=== PATIENT | female | born 1970 | race Caucasian/White ===

== ENCOUNTER 2017-11-15 23:46 | Emergency (ER) | payer MEDICARE, MEDICAID, SELFPAY ==
[2017-11-15 23:49] VITALS: BP 141/93; PULSE 99; RESP 18; TEMP 37.2; O2SAT 100; BMI 43.2
--- NOTE | 2017-11-16 00:12 | ED.DCSUM_ITS ---
- ER Visit Summary Date of Service: 11/16/17 Chief Complaint: [Vaginal lump] History of Present Illness: The patient is a 47 F [who presents to the emergency department with a vaginal lump. She noticed it today while masturbating. It is not painful. She was messing with it. She do not know what it looked like prior to her messing with it. No fevers or chills no urinary symptoms she states she has not been sexually active in 13 years. She is a very poor historian but does state that she had possible herpes remotely. She is also had a history of folliculitis.] Physical Examination: [] Blood pressure 141/93 other vitals within normal limits Well-nourished female in no acute distress exam reveals 1 shallow based ulcer on the mons pubis at the base of a follicle it is not tender there is no drainage there is no surrounding cellulitis there is no abscess or mass She is slightly anxious with flight of ideas Test Results: [] Emergency Department Course and Treatment: [HSV culture was sent. I think this is likely a folliculitis. She will be given bacitracin ointment. She was told she would be contacted if HSV culture came back positive. She is given precautions for which to return.] Treatment Plan: [] Disposition: [Discharge] Impression: [1. Pubic ulcer secondary to folliculitis] This note was generated with [employer] dictation software. It may contain incorrect words, spelling, and punctuation that were not noted in review of the chart prior to signing ED Disposition - Plan for ED Patient: Chief Complaint: Wound Check Referrals: [facility] Doctor,Out of [Primary Care Provider] -
--- NOTE | 2017-11-16 00:13 | ED.DEP ---
ED Disposition - Plan for ED Patient: Chief Complaint: Wound Check Instructions: ED Folliculitis Prescriptions: Bacitracin Ointment 1 applic TOPICAL TID 7 Days #1 tube Referrals: Binh Chaudhry [Other] - 3-5 Days
[2017-11-16] MEDS: BACITRACIN 15 GM Tube 1 APPLIC TOPICAL (00:28)
[2017-11-16 00:42] VITALS: RESP 16
== END 2017-11-16 00:43 | disposition home or self-care (01) ==
LOC: ED 11-16 00:27
PROVIDERS: Emergency Provider Emergency Medicine
DX: N76.6 Ulceration of vulva (principal); L73.9 Follicular disorder, unspecified; E66.9 Obesity, unspecified
CPT/HCPCS: 87255; 99282

== ENCOUNTER 2018-02-07 22:24 | Emergency (ER) | payer MEDICARE, MEDICAID, SELFPAY ==
[2018-02-07 22:25] VITALS: BP 119/83; PULSE 87; RESP 14; TEMP 36.4; O2SAT 98; BMI 30.2
--- NOTE | 2018-02-07 23:07 | ED.VISSUMM ---
- ER Visit Summary Date of Service: 02/07/18 Chief Complaint: Bilateral eye redness History of Present Illness: The patient is a 47 F presenting for redness in both eyes. Patient states that she noticed this one week ago. She has had no drainage or crusting. She has no itching. No pain or burning. No visual changes. She does not wear contacts. She denies chemical exposure. Denies history of injury. She was possibly exposed to pinkeye. She has a history of schizophrenia. She denies hallucinations. She has no suicidal thoughts or plan. She has an appointment with her psychiatrist tomorrow. Physical Examination: Vitals are stable. Patient is afebrile. Alert no acute distress. HEENT exam mild bilateral conjunctival injection. PERRL, EOMI Neck is supple. Lungs are clear and equal bilaterally. Heart is regular rate and rhythm. Extremities are unremarkable. Skin is warm and dry. Remainder of exam is unremarkable. Emergency Department Course and Treatment: Visual acuity is 20/20 OD, 20/20 OS, 20/20 OU. She is given bacitracin ophthalmic ointment. Advised to follow-up with her primary care physician and her psychiatrist as scheduled. Advised return to ED for worsening complaints. Disposition: Discharge home Impression: Mild conjunctivitis, bilateral This note was generated with [employer] dictation software. It may contain incorrect words, spelling, and punctuation that were not noted in review of the chart prior to signing ED Disposition - Plan for ED Patient: Chief Complaint: Eye Problem Referrals: [facility] Doctor,Out of [Primary Care Provider] -
--- NOTE | 2018-02-07 23:10 | ED.DCSUM_ITS ---
- ER Visit Summary Date of Service: 02/07/18 Chief Complaint: Bilateral eye redness History of Present Illness: The patient is a 47 F presenting for redness in both eyes. Patient states that she noticed this one week ago. She has had no drainage or crusting. She has no itching. No pain or burning. No visual changes. She does not wear contacts. She denies chemical exposure. Denies history of injury. She was possibly exposed to pinkeye. She has a history of schizophrenia. She denies hallucinations. She has no suicidal thoughts or plan. She has an appointment with her psychiatrist tomorrow. Physical Examination: Vitals are stable. Patient is afebrile. Alert no acute distress. HEENT exam mild bilateral conjunctival injection. PERRL, EOMI Neck is supple. Lungs are clear and equal bilaterally. Heart is regular rate and rhythm. Extremities are unremarkable. Skin is warm and dry. Remainder of exam is unremarkable. Emergency Department Course and Treatment: Visual acuity is 20/20 OD, 20/20 OS, 20/20 OU. She is given bacitracin ophthalmic ointment. Advised to follow-up with her primary care physician and her psychiatrist as scheduled. Advised return to ED for worsening complaints. Disposition: Discharge home Impression: Mild conjunctivitis, bilateral This note was generated with [employer] dictation software. It may contain incorrect words, spelling, and punctuation that were not noted in review of the chart prior to signing ED Disposition - Plan for ED Patient: Chief Complaint: Eye Problem Referrals: [facility] Doctor,Out of [Primary Care Provider] -
--- NOTE | 2018-02-07 23:20 | ED.DEP ---
ED Disposition - Plan for ED Patient: Chief Complaint: Eye Problem Instructions: ED Conjunctivitis Bacterial Referrals: [facility],Out of [Primary Care Provider] - Counseling,Center [GROUP OF PHYSICIANS] -
[2018-02-07 23:25] VITALS: PULSE 79; RESP 16; O2SAT 98
== END 2018-02-07 23:26 | disposition home or self-care (01) ==
LOC: ED 23:06
PROVIDERS: Emergency Provider Emergency Medicine
DX: H10.9 Unspecified conjunctivitis (principal); Z86.59 Personal history of other mental and behavioral disorders
CPT/HCPCS: 99283

== ENCOUNTER 2018-04-09 21:30 | Emergency (ER) | payer MEDICARE, SELFPAY ==
[2018-04-09 21:31] VITALS: BP 122/66; PULSE 93; RESP 16; TEMP 36.4; O2SAT 97; BMI 28.3
--- NOTE | 2018-04-09 23:45 | ED.DCSUM_ITS ---
- ER Visit Summary Date of Service: 04/09/18 Chief Complaint: Right eye pain History of Present Illness: The patient is a 47 F who presents with right eye pain that began today. Patient admits to some redness. Patient also admits to some watery drainage. Patient admits to a foreign body sensation but does not remember any event where a foreign body got into her eye. Later, the patient stated that she has been chopping wood recently. Patient denies any visual changes. Patient states she normally wears glasses. Physical Examination: Vital signs are stable. Patient is afebrile. Patient is in no acute distress. Pupils are equal, round, and reactive to light bilaterally. Extraocular muscles are intact. Conjunctiva is slightly injected on the right. There is a foreign body noted in the right central cornea. Anterior chamber is clear. There is no hyphema noted. Funduscopic exam was limited due to patient cooperation. The remaining physical exam is within normal limits. Emergency Department Course and Treatment: Tetracaine and fluorescein dye was applied. The foreign body was seen initially has been removed by the patient. Patient states she rubbed her eyes and felt like something came out. There is no corneal abrasion noted. Patient was given a prescription for Polytrim ophthalmic drops. Patient was instructed to follow-up with her primary care physician in 2-3 days. Patient understood and was agreeable with the plan. All questions were answered. Disposition: Discharge home Impression: Foreign body right eye This note was generated with [employer] dictation software. It may contain incorrect words, spelling, and punctuation that were not noted in review of the chart prior to signing ED Disposition - Plan for ED Patient: Disposition: Home or Assisted Living Chief Complaint: Eye Problem Diagnosis: Corneal foreign body Instructions: ED Foreign Body Cornea Prescriptions: Polymyxin B Sulf/Trimethoprim [Polytrim Eye Drops] 2 drp OP 4X/DAY #5 ml Referrals: [facility] Doctor,Out of [Primary Care Provider] -
[2018-04-10] MEDS: Tetracaine 0.5% Ophthalmic Bottle 1 DRP RIGHT EYE
[2018-04-10] MEDS: Fluorescein 1 MG STRIP 1 STRIP RIGHT EYE
[2018-04-10 00:01] VITALS: PULSE 68; RESP 16; O2SAT 97
== END 2018-04-10 00:01 | disposition home or self-care (01) ==
PROVIDERS: Emergency Provider Emergency Medicine
DX: T15.01XA Foreign body in cornea, right eye, initial encounter (principal); X58.XXXA Exposure to other specified factors, initial encounter; Y93.9 Activity, unspecified; Y92.9 Unspecified place or not applicable; Y99.9 Unspecified external cause status
CPT/HCPCS: 99283

== ENCOUNTER 2018-04-28 00:25 | Emergency (ER) | payer MEDICARE, SELFPAY ==
[2018-04-28 00:26] VITALS: BP 139/115; PULSE 74; RESP 16; TEMP 37; O2SAT 98; BMI 29.0
--- NOTE | 2018-04-28 00:44 | ED.VISSUMM ---
- ER Visit Summary Date of Service: 04/28/18 Chief Complaint: Eye check History of Present Illness: The patient is a 47 F who had conjunctivitis a few weeks ago wants to make sure everything is okay. She has no symptoms other than she has blurred vision after watching TV for extended periods of time. She has no photophobia, no vision changes currently, no redness or pain. Physical Examination: Otherwise unremarkable exam, patient has normal external evaluation of the eyelids, conjunctiva shows no erythema pupils are 3 mm and reactive. No palsy. No vision changes and normal exam. Emergency Department Course and Treatment: [Patient was reassured. We will discharge her in stable condition to follow-up with her eye doctor.] Impression: Eye check This note was generated with [employer] dictation software. It may contain incorrect words, spelling, and punctuation that were not noted in review of the chart prior to signing ED Disposition - Plan for ED Patient: Disposition: Home or Assisted Living Chief Complaint: Eye Problem Referrals: Kwesi Gallegos MD [STAFF PHYSICIAN] - 1-2 Weeks Additional Instructions: To get redness, vision changes or eye pain return to the emergency department
--- NOTE | 2018-04-28 00:47 | ED.DCSUM_ITS ---
- ER Visit Summary Date of Service: 04/28/18 Chief Complaint: Eye check History of Present Illness: The patient is a 47 F who had conjunctivitis a few weeks ago wants to make sure everything is okay. She has no symptoms other than she has blurred vision after watching TV for extended periods of time. She has no photophobia, no vision changes currently, no redness or pain. Physical Examination: Otherwise unremarkable exam, patient has normal external evaluation of the eyelids, conjunctiva shows no erythema pupils are 3 mm and reactive. No palsy. No vision changes and normal exam. Emergency Department Course and Treatment: [Patient was reassured. We will discharge her in stable condition to follow-up with her eye doctor.] Impression: Eye check This note was generated with [employer] dictation software. It may contain incorrect words, spelling, and punctuation that were not noted in review of the chart prior to signing ED Disposition - Plan for ED Patient: Disposition: Home or Assisted Living Chief Complaint: Eye Problem Referrals: Kwesi Gallegos MD [STAFF PHYSICIAN] - 1-2 Weeks Additional Instructions: To get redness, vision changes or eye pain return to the emergency department
--- NOTE | 2018-04-28 00:52 | ED.DEP ---
ED Disposition - Plan for ED Patient: Disposition: Home or Assisted Living Chief Complaint: Eye Problem Referrals: Kwesi Gallegos MD [STAFF PHYSICIAN] - 1-2 Weeks Additional Instructions: If you get redness, vision changes or eye pain return to the emergency department
== END 2018-04-28 01:01 | disposition home or self-care (01) ==
LOC: ED 00:58
PROVIDERS: Emergency Provider Emergency Medicine
DX: H57.10 Ocular pain, unspecified eye (principal); H53.8 Other visual disturbances
CPT/HCPCS: 99282

== ENCOUNTER 2018-06-16 01:45 | Emergency (ER) | payer MEDICARE, SELFPAY ==
[2018-06-16 01:46] VITALS: PULSE 86; RESP 18; TEMP 36.8; O2SAT 97
[2018-06-16 01:48] VITALS: BP 105/68; PULSE 83; RESP 18; TEMP 36.8; O2SAT 98; BMI 29.7
--- NOTE | 2018-06-16 02:04 | ED.VISSUMM ---
- ER Visit Summary Date of Service: 06/16/18 Chief Complaint: [Blurred vision/eye problems] History of Present Illness: The patient is a 47 F [since the emergency department with vague complaints of having problems with her eyes for several years. Patient apparently sees Dr. Gallegos who is her venetian blind assembler. Patient also sees a neurologist who told her she does not have MS. Patient has history of paranoid schizophrenia but apparently stopped taking all her medications because she feels like they were making her dumb and were killing her. Patient denies any eye pain currently. Patient denies any foreign body sensation. She has not had any recent illness. Patient is not suicidal or homicidal.] Physical Examination: [HEENT-PERRLA, EOMI. Cranial nerves II through XII grossly intact. TMs clear. Mucous membranes moist. No adenopathy. Cardiovascular-regular rate and rhythm without murmur or ectopy Lungs-clear to auscultation, chest wall stable without crepitus or subcu emphysema Abdomen-normoactive bowel sounds, soft, nontender, no rebound or rigidity, no peritoneal signs. Extremities-intact ?4, normal range of motion, normal pulses, atraumatic] Test Results: [None indicated] Emergency Department Course and Treatment: [Patient having flight of ideas and states that she just wanted to make sure that she was not dying. Patient does not want to be back on her psych meds and would prefer to use natural remedies.] Treatment Plan: [Patient advised to follow-up with her venetian blind assembler within the next 3-5 days.] Disposition: [Discharged home in stable condition] Impression: [Blurred tyufww-datowih-jptitqed uncertain] This note was generated with [employer] dictation software. It may contain incorrect words, spelling, and punctuation that were not noted in review of the chart prior to signing ED Disposition - Plan for ED Patient: Chief Complaint: Eye Problem Referrals: [facility] Doctor,Out of [Primary Care Provider] -
--- NOTE | 2018-06-16 02:07 | ED.DEP ---
ED Disposition - Plan for ED Patient: Chief Complaint: Eye Problem Instructions: ED Blurred Vision Referrals: [facility] Doctor,Out of [Primary Care Provider] - Kwesi Gallegos MD [STAFF PHYSICIAN] - 3-5 Days
== END 2018-06-16 02:14 | disposition home or self-care (01) ==
PROVIDERS: Emergency Provider Emergency Medicine
DX: H53.8 Other visual disturbances (principal); F20.0 Paranoid schizophrenia; Z72.0 Tobacco use
CPT/HCPCS: 99282

== ENCOUNTER 2018-09-13 23:33 | Emergency (ER) | payer MEDICARE, SELFPAY ==
[2018-09-13 23:33] VITALS: BMI 43.2
--- NOTE | 2018-09-13 23:40 | ED.RN ---
DURING TRIAGE, PT STATES THIS IS WHY I HATE THIS PLACE. YOU ASK TOO MANY QUESTIONS. I'M GOING SOMEWHERE ELSE. PT WALKED INTO THE WAITING ROOM AND GRABBED SEVERAL HANDOUTS. WALKING OUT OF THE DEPARTMENT, PT STATES IT'S UP TO THE FBI IF I GET WITNESS PROTECTION. PT WALKED OUT OF THE DEPARTMENT THROUGH THE MAIN ER DOORS.
== END 2018-09-13 23:40 | disposition left against medical advice (07) ==
LOC: ED 23:46
PROVIDERS: Emergency Provider Emergency Medicine
DX: R06.02 Shortness of breath (principal)

== ENCOUNTER 2018-09-23 11:37 | Emergency (ER) | payer MEDICARE, SELFPAY ==
[2018-09-23 11:38] VITALS: BP 149/76; PULSE 101; RESP 16; TEMP 36.6; O2SAT 95; BMI 29.2
--- NOTE | 2018-09-23 11:51 | EKG12_ITS ---
Test Reason : CHEST DISCOMFORT Blood Pressure : / mmHG Vent. Rate : 094 BPM Atrial Rate : 094 BPM P-R Int : 138 ms QRS Dur : 082 ms QT Int : 360 ms P-R-T Axes : 076 082 065 degrees QTc Int : 450 ms Normal sinus rhythm Normal ECG Confirmed by KAMLESH JORGE, JUVENCOI ([id number]), medical transcription editor PAUL SCHULTZ ([id number]) on 09/27/2018 3:20:47 PM Referred By: DC Confirmed By:JUVENCIO WHITLOCK MD
--- NOTE | 2018-09-23 11:51 | CT_ITS ---
STUDY: CTA CHEST REASON FOR EXAM: Female, 47 years old. Sternal chest pain. RADIATION DOSAGE (If Supplied By Facility): CTDIvol = ( 7.03 ) mGy, DLP = ( 375.40 ) mGycm TECHNIQUE: The examination was performed with the intravenous administration of 100 ml of Isovue 370 contrast material. Post-processing of the angiographic images was performed, with multiplanar reformation and 3D reconstruction. Individualized dose optimization techniques were used for this CT. COMPARISON: Prior comparable comparison studies are not available for review at this time. FINDINGS: Cardiac monitoring leads are present. Normal enhancement of the main pulmonary artery and right and left pulmonary arteries. Normal enhancement of the bilateral peripheral pulmonary arteries. There is no demonstrated pulmonary embolism. Normal thoracic aorta and visualized great vessels. There is no demonstrated aortic dissection. Normal heart and pericardium. Normal mediastinum. Normal hilar regions. Normal visualized trachea and bronchi. The lungs are hyper expanded, with flattening of the hemidiaphragms. There is a subpleural nodule within the left lower lobe measuring approximately 7.6 mm in greatest dimension. There is patchy groundglass attenuation within the dependent aspect of the left lung probably related to dependent atelectasis. Patchy airspace disease is also possible. The right lung appears to be clear. Normal pleura. Normal chest wall structures. Normal osseous structures. There appears to be a left adrenal nodule measuring approximately 2.2 cm in greatest dimension. CT/CTA Chest W/WO Contrast IMPRESSION: 1. No CTA demonstrated pulmonary embolism or arterial dissection. 2. Subpleural nodule left lower lobe. Suggest follow-up as per Fleischner criteria. 3. Left basilar airspace disease and/or atelectasis. Electronically Signed: Haley Torre MD at 13:55 EST , Service support ,
[2018-09-23 11:54] VITALS: BP 125/80; PULSE 90; RESP 18; TEMP 37
--- NOTE | 2018-09-23 11:59 | ED.DCSUM_ITS ---
- ER Visit Summary Date of Service: 09/23/18 Chief Complaint: Chest pain History of Present Illness: The patient is a 47 F with chest pain intermittently over the past 2-3 weeks. The pain is located at her right anterior chest. Associated with a cough and sputum. Occasional sore throat. No fevers. She talked to the nurse practitioner correctional therapy teacher who was worried about a PE. Patient has no history of DVT or PE. No cardiac history. No recent immobilization. No leg swelling. Physical Examination: Afebrile and vital signs unremarkable except for heart rate of 101. Lungs clear. Abdomen soft. Extremities nontender with no edema. Skin appears normal. Test Results: EKG shows sinus rhythm at a rate of 94. Labs and CT pending. Emergency Department Course and Treatment: Patient has chest pain with shortness of breath. She also has infectious symptoms. She is concerned about PE. Will check labs, CTA. White count 22.3. The patient is on prednisone. Glucose 125. Troponin normal. test negative. CTA shows no evidence of PE or dissection. She does have a left lung nodule and was advised to follow-up. She has some left-sided airspace disease. She will continue her home medications and follow-up for that as well. Patient is appropriate for outpatient care. Treatment Plan: Above Disposition: Discharge Impression: 1. Chest pain 2. Left lung nodule This note was generated with [employer] dictation software. It may contain incorrect words, spelling, and punctuation that were not noted in review of the chart prior to signing ED Disposition - Plan for ED Patient: Chief Complaint: Chest Other Referrals: [facility] Doctor,Out of [Primary Care Provider] -
[2018-09-23 12:28] LABS: Anion Gap 6 (5-15); BUN 9 mg/dL (7-18); Calcium,Total 8.9 mg/dL (8.5-10.1); Chloride 106 mmol/L (98-107); EST Glomerular Filtration Rate 72 mL/min (>60); Est Glom Filt Rate - Afr Amer 87 mL/min (>60); Estimated Creatinine Clearance 71.03 ml/min; Glucose 125 mg/dL (74-106); Potassium 4.2 mmol/L (3.5-5.1); Sodium Level 140 mmol/L (136-145)
[2018-09-23 12:31] LABS: Pregnancy, Serum, hCG Quali. NEGATIVE Negative (0-9 Nonpreg)
[2018-09-23 12:33] LABS: Absolute Lymphocyte Count 2.17 X10^3/ul (0.83-4.51); Absolute Neutrophil Count 18.2 X10^3/uL (2.0-7.7); Basophil# 0.07 X10^3/uL; Basophil% 0.3 % (0-1); Eosinophil# 0.23 X10^3/uL; Hematocrit 44.7 % (37-47); Hemoglobin 15.2 g/dl (12.0-15.0); Lymphocyte # 2.17 X10^3/ul (4.0); Lymphocyte % 9.7 % (19-41); Mean Corpuscular Hgb 31.6 pg (27.0-32.0); Mean Corpuscular Volume 92.9 fL (81-99); Mean Platelet Vol. 10.5 fl (6.2-12.0); Monocyte# 1.56 X10^3/uL; Neutrophil # 18.17 X10^3/uL (2.7-7.7); Neutrophil % 81.7 % (47-70); Platelet Count 272 K/mm3 (150-450); RBC Distribution Width CV 12.1 % (11.6-14.6); Red Blood Count 4.81 M/mm3 (4.2-5.4); White Blood Count 22.3 K/mm3 (4.4-11.0)
[2018-09-23 12:34] LABS: Differential Indicated SCAN CRITERIA MET; POSITIVE COUNT NO; POSITIVE DIFFERENTIAL YES; POSITIVE MORPHOLOGY NO
[2018-09-23 13:05] VITALS: BP 124/79; PULSE 84; RESP 21; O2SAT 96
--- NOTE | 2018-09-23 14:09 | ED.DEP ---
ED Disposition - Plan for ED Patient: Chief Complaint: Chest Other Instructions: ED Chest Pain Atypical Unkn Cause Referrals: [facility] Doctor,Out of [Primary Care Provider] -
[2018-09-23 14:26] VITALS: BP 108/68; PULSE 78; RESP 15; O2SAT 96
--- OUTSIDE RECORDS SUMMARY | 2018-12-27 10:56 | XMS RPT_ITS ---
:1970 Author Organization OHIP Care Team Providers Name Role Phone SUDHAKAR ROMAN Attending Unavailable ROSANGELA BRAUN Primary Care Unavailable Cj Garber Attending Unavailable Adia Dawson Attending Unavailable ROSANGELA BRAUN Primary Care Unavailable ROSANGELA BRAUN Primary Care Unavailable Lou Montes Attending Unavailable ROSANGELA BRAUN Primary Care Unavailable Cj Garber Attending Unavailable ROSANGELA BRAUN Primary Care Unavailable Elias Boogie Attending Unavailable ROSANGELA BRAUN Primary Care Unavailable Travis Florence Attending Unavailable ROSANGELA BRAUN Primary Care Unavailable Lilia Ricardo Attending Unavailable PROBLEMS PROBLEMS DATE TYPE CONDITION / CODE ATTENDING STATUS SOURCE 09/14/2018 Active Bronchitis, not Martin ROMAN [facility] specified as SUDHAKAR Other [place] acute or chronic Repository / J40(ICD-10) 09/14/2018 Active Wheezing / ABEL, Active [facility] R06.2(ICD-10) SUDHAKAR Other [place] Repository 05/11/2018 Unknown Z00.8 - Encounter Travis Florence Active [place] for other general Community examination / Hospital Z00.8(ICD-10) Repository 04/28/2018 Unknown H57.11 - Ocular Elias Boogie Active [place] pain, right eye / Community H57.11(ICD-10) Hospital Repository PROCEDURES PROCEDURES No Procedure Records FoundRESULTS RESULTS 12 LEAD ELECTROCARDIOGRAM Observed: 09/27/2018 Status: F Source: [place] 3:21 PM [facility] REPOSITORY [facility] Cardiovascular Services [address] [place] [address] 12 Lead EKG 09/23/18 1159 MR#: [id number] Acct: [id number] Name: LYNSEY BACH Rep #: [id number] : 1970 47 From: Tra Woodruff MD Attending Dr: Status: DEP ER Ordering Dr: Cj Garber MD Date: 09/23/18 Location: ED Sex: F C Admitted: Test Reason : CHEST DISCOMFORT Blood Pressure : / mmHG Vent. Rate : 094 BPM Atrial Rate : 094 BPM P-R Int : 138 ms QRS Dur : 082 ms QT Int : 360 ms P-R-T Axes : 076 082 065 degrees QTc Int : 450 ms Normal sinus rhythm Normal ECG Confirmed by TRA WOODRUFF MD ([id number]), assistant production editor PAUL SCHULTZ ([id number]) on 09/27/2018 3:20:47 PM Referred By: DC Confirmed By:TRA WOODRUFF MD 09/27/18 1520 Date Tra Woodruff MD CC: JEZ NOE; Cj Garber MD; OUT OF TOWN DOCTOR Signed DISCHARGE INSTRUCTION Observed: 09/23/2018 Status: F Source: [place] 4:56 PM [facility] REPOSITORY [facility] Medical Records Department [address] [facility] [address] Discharge Instruction 09/23/18 1409 MR#: [id number] Acct: [id number] Name: LYNSEY BACH Rep #: [id number] : 1970 47 From: Cj Garber MD PCP: OUT OF [facility] DOCTOR Status: DEP ER ED Disposition - Plan for ED Patient: Chief Complaint: Chest Other Instructions: ED Chest Pain Atypical Unkn Cause Referrals: [facility] Doctor,Out of [Primary Care Provider] - What to do if you have Problems For any increased pain, shortness of breath, bleeding, nausea or vomiting, chest pain, or any unexpected problems, contact your Primary Care Provider. Call [facility] ([phone]) or report to the closest Emergency Room. Call 911 if necessary. 09/23/18 1656 <Electronically signed by Cj Garber MD> Date Cj Garber MD Cosigner Signature (If Indicated): Date CC: JEZ NOE; OUT OF [facility] DOCTOR EMERGENCY DEPARTMENT Observed: 09/23/2018 Status: F Source: [place] SUMMARY 4:56 PM [facility] REPOSITORY [facility] Medical Records Department [address] [place] [address] Emergency Department Summary 09/23/18 1158 MR#: [id number] Acct: [id number] Name: LYNSEY BACH Rep #: [id number] : 1970 47 From: Cj Garber MD PCP: OUT OF [facility] DOCTOR Status: DEP ER - ER Visit Summary Date of Service: 09/23/18 Chief Complaint: Chest pain History of Present Illness: The patient is a 47 F with chest pain intermittently over the past 2-3 weeks. The pain is located at her right anterior chest. Associated with a cough and sputum. Occasional sore throat. No fevers. She talked to the nurse practitioner long goods drier who was worried about a PE. Patient has no history of DVT or PE. No cardiac history. No recent immobilization. No leg swelling. Physical Examination: Afebrile and vital signs unremarkable except for heart rate of 101. Lungs clear. Abdomen soft. Extremities nontender with no edema. Skin appears normal. Test Results: EKG shows sinus rhythm at a rate of 94. Labs and CT pending. Emergency Department Course and Treatment: Patient has chest pain with shortness of breath. She also has infectious symptoms. She is concerned about PE. Will check labs, CTA. White count 22.3. The patient is on prednisone. Glucose 125. Troponin normal. test negative. CTA shows no evidence of PE or dissection. She does have a left lung nodule and was advised to follow-up. She has some left-sided airspace disease. She will continue her home medications and follow-up for that as well. Patient is appropriate for outpatient care. Treatment Plan: Above Disposition: Discharge Impression: 1. Chest pain 2. Left lung nodule This note was generated with [employer] dictation software. It may contain incorrect words, spelling, and punctuation that were not noted in review of the chart prior to signing ED Disposition - Plan for ED Patient: Chief Complaint: Chest Other Referrals: [facility] Doctor,Out of [Primary Care Provider] - What to do if you have Problems For any increased pain, shortness of breath, bleeding, nausea or vomiting, chest pain, or any unexpected problems, contact your Primary Care Provider. Call [facility] ([phone]) or report to the closest Emergency Room. Call 911 if necessary. 09/23/18 7826 <Electronically signed by Cj Garber MD> Date Cj Garber MD Cosigner Signature (If Indicated): Date CC: JEZ NOE; OUT OF TOWN DOCTOR BASIC METABOLIC Collected: 09/23/2018 Status: F Source: [place] PROFILE (BMP) 12:00 PM [facility] REPOSITORY TYPE CODE TESTS RESULT OUT OF RANGE REFERENCE UNITS LAB L501.0100 74-106 mg/dL High GLU 125 Result Comment: Fasting Glucose result from 100 to 125 mg/dL suggests IMPAIRED HOMEOSTASIS per A.D.A. criteria. Please note revised GLUCOSE reference range effective 2017. LAB L501.1000 7-18 mg/dL Normal BUN 9 LAB L501.1100 0.55-1.02 mg/dL Normal CREAT,SERUM 0.90 Result Comment: The validity of the calculated GFR AND GFRAA in patients over 70 years has not been determined. Clinical correlation is essential. LAB L501.1110 >60 mL/min Normal EST GFR 72 Result Comment: Non- GFR Calc LAB L501.1115 >60 mL/min Normal EST GFR - AA 87 Result Comment: GFR Calc LAB L501.1255 ml/min Normal Estimated CRCL 71.03 LAB L501.1300 10-20 RATIO Normal BUN/CRE 10.0 LAB L501.2200 8.5-10 mg/dL Normal .1 CA 8.9 LAB L501.5300 136-14 mmol/L Normal 5 NA 140 LAB L501.5600 3.5-5. mmol/L Normal 1 K 4.2 LAB L501.5900 98-107 mmol/L Normal CL 106 LAB L501.6100 21.0-3 mmol/L Normal 2.0 CO2 28.0 LAB L501.6200 5-15 Normal GAP 6 Performed By: #### L500.2500, L501.4010 #### [facility] [address] [facility]. [place], [place], [address] TROPONIN-I Collected: 09/23/2018 Status: F Source: [place] 12:00 PM [facility] REPOSITORY TYPE CODE TESTS RESULT OUT OF RANGE REFERENCE UNITS LAB L501.4010 <0.045 ng/mL Normal < 0.015 TROPONIN-I Result Comment: TROPONIN-I EXPECTED VALUES <0.045 Negative 0.045 - 0.590 Consistent with Cardiac Damage > OR = 0.600 Critical Value Not every elevated troponin is indicative of AL. These values should be used with clinical judgement in examining the patient's clinical picture for diagnosis. To establish a diagnosis of AL versus myocardial injury, there must be a demonstrated rise and/or fall in the troponin values, in addition to ischemic symptoms, EKG changes, new regional wall motion abnormality, and/or angiographical evidence. PLEASE NOTE: REFERENCE RANGES EDITED 18 Performed By: #### L500.2500, L501.4010 #### [facility] [address] [place], [place], [address] ,SERUM,HCG QUALI. Collected: Status: F Source: [place] 09/23/2018 12:00 PM [facility] REPOSITORY TYPE CODE TESTS RESULT OUT OF REFERENCE UNITS RANGE LAB L700.6700 =>Qualitative mIU/mL Normal HCG Qual < 1 triggr LAB L700.7000 0-9 Nonpreg Negative Normal HCGSQUAL NEGATIVE Performed By: #### L700.6800 #### [facility] [address] [facility] [address] [place], [place], [address] CBC W/DIFF, AUTOMATED Collected: 09/23/2018 Status: F Source: [place] 12:00 PM [facility] REPOSITORY TYPE CODE TESTS RESULT OUT OF RANGE REFERENCE UNITS LAB L100.1000 4.4-11.0 K/mm3 High WBC 22.3 LAB L100.1200 4.2-5.4 M/mm3 Normal RBC 4.81 LAB L100.1300 12.0-15.0 g/dl High HGB 15.2 LAB L100.1400 37-47 % Normal HCT 44.7 LAB L100.1500 81-99 fL Normal MCV 92.9 LAB L100.1600 27.0-32.0 pg Normal MCH 31.6 LAB L100.1700 32-36 g/gl Normal MCHC 34.0 LAB L100.1810 11.6-14.6 % Normal RDW CV 12.1 LAB L100.1820 35.1-43.9 fl Normal RDW SD 41.0 LAB L100.1900 150-450 K/mm3 Normal PLT 272 LAB L100.2000 6.2-12.0 fl Normal MPV 10.5 LAB L100.2100 47-70 % High NEUT% 81.7 LAB L100.2200 19-41 % Low LY% 9.7 LAB L100.2300 0-10 % Normal MONO% 7.0 LAB L100.2400 0-5 % Normal EO% 1.0 LAB L100.2500 0-1 % Normal BASO% 0.3 LAB L100.2550 0.0-0.9 % Normal IM GRAN % 0.300 Result Comment: IG% - Immature Granulocytes (promyelocytes, myelocytes and metamyelocytes) > 1% indicates that a LEFT SHIFT is Present. LAB L100.2620 2.0-7.7 X10 3/uL High Absolute Neut 18.2 LAB L100.2720 0.83-4.51 X10 3/ul Normal Absolute Lymph 2.17 Performed By: #### L100.0100 #### [facility] [address] [facility] [place], [address] CTA CHEST W/WO Observed: 09/23/2018 Status: F Source: [place] CONTRAST 11:52 AM [facility] REPOSITORY [facility] Imaging Services [address] [place] [address] CTA Chest W/WO Contrast MR#: [id number] Acct: [id number] Name: LYNSEY BACH Rep #: [id number] : 1970 F 47 From: Haley Schultz MD PCP: OUT OF TOWN DOCTOR Status: REG ER Study: CTA Chest W/WO Contrast Date of Exam: 09/23/18 Exam# [id number] Ordering Dr: Cj Garber MD STUDY: CTA CHEST REASON FOR EXAM: Female, 47 years old. Sternal chest pain. RADIATION DOSAGE (If Supplied By Facility): CTDIvol = ( 7.03 ) mGy, DLP = ( 375.40 ) mGycm TECHNIQUE: The examination was performed with the intravenous administration of 100 ml of Isovue 370 contrast material. Post-processing of the angiographic images was performed, with multiplanar reformation and 3D reconstruction. Individualized dose optimization techniques were used for this CT. COMPARISON: Prior comparable comparison studies are not available for review at this time. FINDINGS: Cardiac monitoring leads are present. Normal enhancement of the main pulmonary artery and right and left pulmonary arteries. Normal enhancement of the bilateral peripheral pulmonary arteries. There is no demonstrated pulmonary embolism. Normal thoracic aorta and visualized great vessels. There is no demonstrated aortic dissection. Normal heart and pericardium. Normal mediastinum. Normal hilar regions. Normal visualized trachea and bronchi. The lungs are hyper expanded, with flattening of the hemidiaphragms. There is a subpleural nodule within the left lower lobe measuring approximately 7.6 mm in greatest dimension. There is patchy groundglass attenuation within the dependent aspect of the left lung probably related to dependent atelectasis. Patchy airspace disease is also possible. The right lung appears to be clear. Normal pleura. Normal chest wall structures. Normal osseous structures. There appears to be a left adrenal nodule measuring approximately 2.2 cm in greatest dimension. CT/CTA Chest W/WO Contrast IMPRESSION: 1. No CTA demonstrated pulmonary embolism or arterial dissection. 2. Subpleural nodule left lower lobe. Suggest follow-up as per Fleischner criteria. 3. Left basilar airspace disease and/or atelectasis. Electronically Signed: Haley Schultz MD at 13:55 EST , Service support , CC: Cj Garber MD; OUT OF TOWN DOCTOR Roll Icer Machine: Signed ED PROV NOTE Observed: 09/14/2018 Status: COMPLETED Source: [place] 3:25 AM CLINIC OTHER CAMPUS REPOSITORY HNO ID: [id number] Author: Sudhakar Roman DO Service: Emergency Medicine Author Type: Physician Type: ED Provider Notes Filed: 09/14/2018 3:29 AM Note Text: ED Provider Note Patient Name: Lynsey Bach SERVICE DATE: 09/14/18 History Patient presents with: Cough Patient is a 47-year-old female presenting for cough. Patient states that she's been having a cough for the past 2 weeks. States that in the morning and seems to be the most productive with some green sputum but has a progressive headache clears. Does state that she gets some chest pain with the coughing. States that she feels congested and that there something inside of her chest. Does state that she intermittently wheezes. Has used an inhaler which would feel better. Denies any shortness of breath. No reported fevers or chills. Does state that she's had some nasal congestion. Denies any nausea or vomiting. States she's had a similar episode in the past and had to be placed on a Z-Hilario. Does state that she smokes a pack a day. History provided by: Patient chief service dispatcher used: No PAST MEDICAL HISTORY Diagnosis Date - Depressive disorder, not elsewhere classified PAST SURGICAL HISTORY Procedure Laterality Date - DELIVERY ONLY - PAST SURGICAL HISTORY OF 1997 excision of benign oral tumor - PAST SURGICAL HISTORY OF 10/2003 repair venous aneurysm saphenous vein left ankle, excision ganglion cyst left foot FAMILY HISTORY Problem Relation Age of Onset - Psychiatry Father suicide - Breast Cancer Paternal Grandmother Social History Social History Main Topics - Smoking status: Current Every Day Smoker Packs/day: 1.00 Years: 17.00 Types: Cigarettes - Smokeless tobacco: Never Used - Alcohol use No Comment: occasional - Drug use: No - Sexual activity: No ALLERGIES Allergen Reactions - Abilify [Aripiprazo* Intolerance Cold and stiff - Prozac [Fluoxetine * Intolerance Makes her mean - Reglan [Metoclopram* Intolerance Think crazy Review of Systems Constitutional: Negative for fever. HENT: Positive for congestion. Negative for sore throat. Respiratory: Positive for cough and wheezing. Negative for shortness of breath. Cardiovascular: Positive for chest pain (With cough). Gastrointestinal: Negative for abdominal pain, nausea and vomiting. Musculoskeletal: Negative for back pain. Neurological: Negative for light-headedness and headaches. All other systems reviewed and are negative. Physical Exam BP 124/90 Pulse 89 Temp (Src) 98 (Oral) Resp 16 Ht 5' 5 (1.65m) Wt 176 lb (79.8kg) SpO2 97% BMI 29.29 kg/(m2). Physical Exam Constitutional: She is oriented to person, place, and time. She appears well-developed. No distress. HENT: Head: Atraumatic. Right Ear: External ear normal. Left Ear: External ear normal. Nose: Nose normal. Mouth/Throat: Oropharynx is clear and moist. No oropharyngeal exudate. Eyes: Pupils are equal, round, and reactive to light. Conjunctivae and EOM are normal. Right eye exhibits no discharge. Left eye exhibits no discharge. Neck: Neck supple. No JVD present. Cardiovascular: Normal rate and regular rhythm. Pulmonary/Chest: Effort normal and breath sounds normal. No stridor. No respiratory distress. She has no wheezes. She exhibits no tenderness. Abdominal: She exhibits no distension. Musculoskeletal: She exhibits no deformity. Neurological: She is alert and oriented to person, place, and time. Skin: Skin is warm. No pallor. Psychiatric: Her behavior is normal. Nursing note and vitals reviewed. Diagnostic Testing ED Labs Ordered and Reviewed - No data to display XR CHEST 2V FRONTAL/LAT Final Result IMPRESSION: No radiographic evidence of acute cardiopulmonary abnormality. Roll Icer Machine: PSCNathalie Transcribe Date/Time: Sep 14 2018 2:30A Dictated by : UNRULY NUNES MD This examination was interpreted and the report reviewed and electronically signed by: UNRULY NUNES MD on Sep 14 2018 2:30AM EST EKG INTERPRETATION: RHYTHM: Normal sinus rhythm at 73 beats per minute AXIS: Normal axis INTERVALS: Normal SD interval QRS COMPLEX: Normal ST SEGMENT: Normal ST-T segments QT INTERVAL: Normal COMPARED WITH PRIOR: None available Interpretation by ED physician. Procedures ED Course / Clinical Impression Clinical Impressions as of Sep 14 325 Bronchitis MDM / Disposition / Plan Chest x-ray showed no signs of a pneumonia, congestive heart failure pneumothorax. EKG showed a normal sinus rhythm. Symptoms seem to be consistent with bronchitis. Since her symptoms have been going on for more than 2 weeks course of antibiotics and steroids written. They complain of some chest discomfort with cough. Pain does not seem to be consistent with any ACS, PE or dissection. Breathing comfortably in the room in no signs of any respiratory distress. Doesn't appear to be septic. At this time can try outpatient treatment. First dose of the azithromycin and prednisone given here Disposition The patient was discharged and given RX. Counseled patient regarding radiology results and suspected diagnosis. As well as the need for follow-up. Discharged home with verbal and written instructions. They were instructed to return as needed for persistent or worsening symptoms or any new concerns. Medication(s) prescribed include Azithromycin, prednisone, Tylenol, albuterol, Tessalon Perles. Condition at disposition is stable. SIGNATURE: DO Sudhakar Guzman DO 09/14/18 0329 ED NOTE Observed: 09/14/2018 Status: COMPLETED Source: [place] 3:25 AM CLINIC OTHER CAMPUS REPOSITORY HNO ID: [id number] Author: Viri (Rn) Nikole, RN Service: (none) Author Type: Registered Nurse Type: ED Notes Filed: 09/14/2018 3:39 AM Note Text: Pt received written and verbal discharge instructions. All questions answered. Pt educated on medications and dosages. Instructed pt to follow up with PCP or follow-up DR. No acute distress noted. Instructed to come back to Emergency Room if symptoms worsen. Pt verbalized understanding. All belongings with patient. Pt ambulated with steady gait out of ED. ED NOTE Observed: 09/14/2018 Status: COMPLETED Source: [place] 3:00 AM [facility] OTHER [place] REPOSITORY HNO ID: [id number] Author: Viri (Rn) Nikole, RN Service: (none) Author Type: Registered Nurse Type: ED Notes Filed: 09/14/2018 3:38 AM Note Text: Pt is resting in room, no complaints at this time. Toilet and comfort measures offered. No distress noted. Call light within reach, safety maintained. EKG (AK,AV,EU,FV,HL,BILL,MM,SP) Observed: Status: F Source: [place] 09/14/2018 2:57 AM [facility] OTHER CAMPUS REPOSITORY NAME : LYNSEY BACH PID : [id number] : 1970 Gender : Female Race : ORD : [id number] Procedure Date : Sep 14 2018 02:57:22 Edit Date : Sep 14 2018 09:54:44 Diagnosis:SINUS RHYTHM Normal ECG 0259 Confirmed by DO ROMAN NICHOLAS ([id number]), assistant production editor MINGO CUMMINS ([id number]) on 09/14/2018 9:54:37 AM Ventricular Rate : 73 BPM Atrial Rate : 72 BPM P-R Interval : 164 ms QRS Duration : 82 ms Q-T Interval : 396 ms QTC Calculation(Bezet) : 436 ms P [place] : 77 degrees R [place] : 81 degrees T [place] : 50 degrees Test Reason : Pre OP Location : 502 : LUED LUED1 Overread By : DO ROMAN NICHOLAS Edited By : MINGO CUMMINS Referred By : , Acquired by : CAT, XR CHEST 2V FRONTAL/LAT Observed: 09/14/2018 Status: F Source: [place] 2:29 AM [facility] OTHER CAMPUS REPOSITORY * * *Final Report* * * DATE OF EXAM: Sep 14 2018 2:29AM LUX 5291 - XR CHEST 2V FRONTAL/LAT / PROCEDURE REASON: Cough, new onset * * * * Physician Interpretation * * * * CHEST RADIOGRAPH: PA and lateral views of the chest Exam Date/Time: 09/14/2018 2:29 AM Indication: Cough, new onset Comparison: No relevant prior study available for comparison. RESULTS: Lines, Tubes, and Devices: None Lungs and Pleura: The lungs are clear. No pleural effusion or pneumothorax. Cardiomediastinal silhouette: The mediastinal and cardiac silhouette are normal in size and contour. Other: The bones of the chest are unremarkable. IMPRESSION: No radiographic evidence of acute cardiopulmonary abnormality. Roll Icer Machine: PSCB Transcribe Date/Time: Sep 14 2018 2:30A Dictated by : UNRULY NUNES MD This examination was interpreted and the report reviewed and electronically signed by: UNRULY NUNES MD on Sep 14 2018 2:30AM EST [id number] ED NOTE Observed: 09/14/2018 Status: COMPLETED Source: [place] 2:13 AM [facility] OTHER [place] REPOSITORY O ID: [id number] Author: Sandhya (Medic) Yaneth Service: (none) Author Type: Diesel Mechanic and Grinder Operator Type: ED Notes Filed: 09/14/2018 2:14 AM Note Text: Pt presented to ED with cc of coughing for weeks. PT stated that she tried her mothers inhaler but no relief. PT states that she feels like something is in her chest. DISCHARGE INSTRUCTION Observed: 06/16/2018 Status: F Source: [place] 2:08 AM [facility] REPOSITORY [facility] Medical Records Department [address] [place] [address] Discharge Instruction 06/16/18 0207 MR#: [id number] Acct: [id number] Name: LYNSEY BACH Rep #: [id number] : 1970 47 From: Lou Montes DO PCP: OUT OF TOWN DOCTOR Status: REG ER ED Disposition - Plan for ED Patient: Chief Complaint: Eye Problem Instructions: ED Blurred Vision Referrals: [facility] Doctor,Out of [Primary Care Provider] - Kwesi Gallegos MD [STAFF PHYSICIAN] - 3-5 Days What to do if you have Problems For any increased pain, shortness of breath, bleeding, nausea or vomiting, chest pain, or any unexpected problems, contact your Primary Care Provider. Call [facility] ([phone]) or report to the closest Emergency Room. Call 911 if necessary. 06/16/18 0208 <Electronically signed by Lou Montes DO> Date Lou Montes DO Cosigner Signature (If Indicated): Date CC: OUT OF TOWN DOCTOR EMERGENCY DEPARTMENT Observed: 06/16/2018 Status: F Source: [place] SUMMARY 2:07 AM [facility] REPOSITORY [facility] Medical Records Department [address] [place] [address] Emergency Department Summary 06/16/18 0204 MR#: [id number] Acct: [id number] Name: LYNSEY BACH Rep #: [id number] : 1970 47 From: Lou Montes DO PCP: OUT OF TOWN DOCTOR Status: REG ER - ER Visit Summary Date of Service: 06/16/18 Chief Complaint: [Blurred vision/eye problems] History of Present Illness: The patient is a 47 F [since the emergency department with vague complaints of having problems with her eyes for several years. Patient apparently sees Dr. Gallegos who is her investment banking associate. Patient also sees a neurologist who told her she does not have MS. Patient has history of paranoid schizophrenia but apparently stopped taking all her medications because she feels like they were making her dumb and were killing her. Patient denies any eye pain currently. Patient denies any foreign body sensation. She has not had any recent illness. Patient is not suicidal or homicidal.] Physical Examination: [HEENT-PERRLA, EOMI. Cranial nerves II through XII grossly intact. TMs clear. Mucous membranes moist. No adenopathy. Cardiovascular-regular rate and rhythm without murmur or ectopy Lungs-clear to auscultation, chest wall stable without crepitus or subcu emphysema Abdomen-normoactive bowel sounds, soft, nontender, no rebound or rigidity, no peritoneal signs. Extremities-intact 4, normal range of motion, normal pulses, atraumatic] Test Results: [None indicated] Emergency Department Course and Treatment: [Patient having flight of ideas and states that she just wanted to make sure that she was not dying. Patient does not want to be back on her psych meds and would prefer to use natural remedies.] Treatment Plan: [Patient advised to follow-up with her investment banking associate within the next 3-5 days.] Disposition: [Discharged home in stable condition] Impression: [Blurred eqirbn-kigkstj-dnrgabje uncertain] This note was generated with [employer] dictation software. It may contain incorrect words, spelling, and punctuation that were not noted in review of the chart prior to signing ED Disposition - Plan for ED Patient: Chief Complaint: Eye Problem Referrals: [facility] Doctor,Out of [Primary Care Provider] - What to do if you have Problems For any increased pain, shortness of breath, bleeding, nausea or vomiting, chest pain, or any unexpected problems, contact your Primary Care Provider. Call [facility] ([phone]) or report to the closest Emergency Room. Call 911 if necessary. 06/16/18 0207 <Electronically signed by Lou Montes DO> Date Lou Montes DO Cosigner Signature (If Indicated): Date CC: OUT OF [facility] DOCTOR DISCHARGE INSTRUCTION Observed: 04/28/2018 Status: F Source: [place] 12:53 AM [facility] REPOSITORY [facility] Medical Records Department [address] [place] [address] Discharge Instruction 04/28/18 0052 MR#: [id number] Acct: [id number] Name: LYNSEY BACH Rep #: [id number] : 1970 47 From: Travis Florence MD PCP: OUT OF TOWN DOCTOR Status: PRE ER ED Disposition - Plan for ED Patient: Disposition: Home or Assisted Living Chief Complaint: Eye Problem Referrals: Kwesi Gallegos MD [STAFF PHYSICIAN] - 1-2 Weeks Additional Instructions: If you get redness, vision changes or eye pain return to the emergency department What to do if you have Problems For any increased pain, shortness of breath, bleeding, nausea or vomiting, chest pain, or any unexpected problems, contact your Primary Care Provider. Call [facility] ([phone]) or report to the closest Emergency Room. Call 911 if necessary. 04/28/18 0053 <Electronically signed by Travis Florence MD> Date Travis Florence MD Cosigner Signature (If Indicated): Date CC: OUT OF TOWN DOCTOR EMERGENCY DEPARTMENT Observed: 04/28/2018 Status: F Source: [place] SUMMARY 12:47 AM [facility] Medical Records Department [address] [place] [address] Emergency Department Summary 04/28/18 0044 MR#: [id number] Acct: [id number] Name: LYNSEY BACH Rep #: [id number] : 1970 47 From: Travis Florence MD PCP: OUT OF TOWN DOCTOR Status: PRE ER - ER Visit Summary Date of Service: 04/28/18 Chief Complaint: Eye check History of Present Illness: The patient is a 47 F who had conjunctivitis a few weeks ago wants to make sure everything is okay. She has no symptoms other than she has blurred vision after watching TV for extended periods of time. She has no photophobia, no vision changes currently, no redness or pain. Physical Examination: Otherwise unremarkable exam, patient has normal external evaluation of the eyelids, conjunctiva shows no erythema pupils are 3 mm and reactive. No palsy. No vision changes and normal exam. Emergency Department Course and Treatment: [Patient was reassured. We will discharge her in stable condition to follow-up with her eye doctor.] Impression: Eye check This note was generated with [employer] dictation software. It may contain incorrect words, spelling, and punctuation that were not noted in review of the chart prior to signing ED Disposition - Plan for ED Patient: Disposition: Home or Assisted Living Chief Complaint: Eye Problem Referrals: Kwesi Gallegos MD [STAFF PHYSICIAN] - 1-2 Weeks Additional Instructions: To get redness, vision changes or eye pain return to the emergency department What to do if you have Problems For any increased pain, shortness of breath, bleeding, nausea or vomiting, chest pain, or any unexpected problems, contact your Primary Care Provider. Call [facility] ([phone]) or report to the closest Emergency Room. Call 911 if necessary. 04/28/18 0047 <Electronically signed by Travis Florence MD> Date Travis Florence MD Cosigner Signature (If Indicated): Date CC: OUT OF TOWN DOCTOR PROGRESS Observed: 04/22/2018 Status: COMPLETED Source: [facility] 2:47 PM [facility] REPOSITORY O ID: [id number] Author: Ankush Olvera) Stephanie Service: (none) Author Type: Physician Research Staff Member Type: Progress Notes Filed: 04/22/2018 2:56 PM Note Text: Subjective HPI Pt presents with wanting an eye check. She has paranoid schizophrenia and patient very paranoid during visit. She has tangential speaking and thinks the FBI is after here. She does however have a concern that she might need some eye drops refilled form a visit to the ED she has over a month ago per patient. She is not having symptoms still but wants to know if she needs her antibiotic eyedrops refilled. She had an abrasion a month ago. Review of Systems All other systems reviewed and are negative. PAST MEDICAL HISTORY Diagnosis Date - Depressive disorder, not elsewhere classified Current Outpatient Prescriptions: ALOE VERA ORAL Take by mouth. Disp: Rfl: DIETARY SUPPLEMENT ORAL Take by mouth. baby in me Disp: Rfl: VITAMIN B COMPLEX (B COMPLEX VITAMINS ORAL) Take by mouth. Disp: Rfl: B INFANTIS/B ANI/B JOSE/B BIFID (PROBIOTIC 4X ORAL) Take by mouth. Disp: Rfl: APPLE CIDER VINEGAR ORAL Take by mouth. Disp: Rfl: albuterol HFA (VENTOLIN HFA) 90 mcg/actuation inhaler Inhale 2 Puffs as instructed every 4 hours as needed for Wheezing/Shortness of Breath. (Patient not taking: Reported on 04/22/2018 ) Disp: 1 Inhaler Rfl: 0 Ipeqxdrmzrvswbc-Cvhdvhomp-NG (BROMFED DM) 2-30-10 mg/5 mL syrup Take 5 mL by mouth four times daily as needed. (Patient not taking: Reported on 04/22/2018 ) Disp: 120 mL Rfl: 0 MAGNESIUM ORAL Take by mouth. Disp: Rfl: QUETIAPINE FUMARATE (SEROQUEL XR ORAL) Take by mouth. Disp: Rfl: CALCIUM CARBONATE/VITAMIN D3 (VITAMIN D-3 ORAL) Take by mouth. Disp: Rfl: valACYclovir (VALTREX) 500 mg tablet Take 500 mg by mouth twice daily. Disp: Rfl: risperiDONE (RISPERDAL) 2 mg tablet Take 2 mg by mouth twice daily. Disp: Rfl: CITALOPRAM HYDROBROMIDE (CITALOPRAM ORAL) Take 1 tablet by mouth once daily. Disp: Rfl: MULTIVITAMIN TAB Take one(1) tablet daily. Disp: Rfl: 0 No current facility-administered medications for this visit. PAST SURGICAL HISTORY Procedure Laterality Date - DELIVERY ONLY - PAST SURGICAL HISTORY OF 1997 excision of benign oral tumor - PAST SURGICAL HISTORY OF 10/2003 repair venous aneurysm saphenous vein left ankle, excision ganglion cyst left foot FAMILY HISTORY Problem Relation Age of Onset - Psychiatry Father suicide - Breast Cancer Paternal Grandmother Social History Substance Use Topics - Smoking status: Current Every Day Smoker Packs/day: 1.00 Years: 17.00 Types: Cigarettes - Smokeless tobacco: Never Used - Alcohol use Yes Comment: occasional BP 126/74 Pulse 76 Temp 36.8 ?C (98.2 ?F) (Tympanic) Wt 79.8 kg (176 lb) SpO2 98% Objective Physical Exam Constitutional: She is oriented to person, place, and time and well-developed, well-nourished, and in no distress. HENT: Head: Normocephalic and atraumatic. Right Ear: Tympanic membrane, external ear and ear canal normal. Left Ear: Tympanic membrane, external ear and ear canal normal. Nose: Nose normal. Mouth/Throat: Uvula is midline, oropharynx is clear and moist and mucous membranes are normal. Eyes: Conjunctivae, EOM and lids are normal. Pupils are equal, round, and reactive to light. Lids are everted and swept, no foreign bodies found. Right eye exhibits no discharge, no exudate and no hordeolum. No foreign body present in the right eye. Left eye exhibits no discharge, no exudate and no hordeolum. Cardiovascular: Normal rate, regular rhythm and normal heart sounds. Pulmonary/Chest: Effort normal and breath sounds normal. Neurological: She is alert and oriented to person, place, and time. Skin: Skin is warm and dry. Psychiatric: Her mood appears anxious. She is agitated. She exhibits disordered thought content. Pt tangentially speaking about paranoid thoughts Nursing note and vitals reviewed. ASSESSMENT/PLAN: 1. Eye irritation - ICD9: 379.99, ICD10: H57.8 Pt not having symptoms here, I did not feel she needed a refil on antibiotic drops. I did refer her back to her counselor for the paranoia. CHRISTY Avila Observed: 04/22/2018 Status: COMPLETED Source: [place] 1:00 PM [facility] REPOSITORY Office Visit ([facility]) LYNSEY BACH ([id number]) 1970 F Date Time Provider Department 04/22/18 1:00 PM ANKUSH SUMNER (CHANG) [facility] During your visit today, we recorded the following information about you: Temperature Pulse Blood pressure Weight 98.2 degrees 76/minute 126/74 79.8 kg Ankush Sumner PA-C 04/22/2018 2:56 PM Signed Subjective HPI Pt presents with wanting an eye check. She has paranoid schizophrenia and patient very paranoid during visit. She has tangential speaking and thinks the FBI is after here. She does however have a concern that she might need some eye drops refilled form a visit to the ED she has over a month ago per patient. She is not having symptoms still but wants to know if she needs her antibiotic eyedrops refilled. She had an abrasion a month ago. Review of Systems All other systems reviewed and are negative. PAST MEDICAL HISTORY Diagnosis Date - Depressive disorder, not elsewhere classified Current Outpatient Prescriptions: ALOE VERA ORAL Take by mouth. Disp: Rfl: DIETARY SUPPLEMENT ORAL Take by mouth. baby in me Disp: Rfl: VITAMIN B COMPLEX (B COMPLEX VITAMINS ORAL) Take by mouth. Disp: Rfl: B INFANTIS/B ANI/B JOSE/B BIFID (PROBIOTIC 4X ORAL) Take by mouth. Disp: Rfl: APPLE CIDER VINEGAR ORAL Take by mouth. Disp: Rfl: albuterol HFA (VENTOLIN HFA) 90 mcg/actuation inhaler Inhale 2 Puffs as instructed every 4 hours as needed for Wheezing/Shortness of Breath. (Patient not taking: Reported on 04/22/2018 ) Disp: 1 Inhaler Rfl: 0 Owewjopdqpbxush-Rmlzlwssi-RD (BROMFED DM) 2-30-10 mg/5 mL syrup Take 5 mL by mouth four times daily as needed. (Patient not taking: Reported on 04/22/2018 ) Disp: 120 mL Rfl: 0 MAGNESIUM ORAL Take by mouth. Disp: Rfl: QUETIAPINE FUMARATE (SEROQUEL XR ORAL) Take by mouth. Disp: Rfl: CALCIUM CARBONATE/VITAMIN D3 (VITAMIN D-3 ORAL) Take by mouth. Disp: Rfl: valACYclovir (VALTREX) 500 mg tablet Take 500 mg by mouth twice daily. Disp: Rfl: risperiDONE (RISPERDAL) 2 mg tablet Take 2 mg by mouth twice daily. Disp: Rfl: CITALOPRAM HYDROBROMIDE (CITALOPRAM ORAL) Take 1 tablet by mouth once daily. Disp: Rfl: MULTIVITAMIN TAB Take one(1) tablet daily. Disp: Rfl: 0 No current facility-administered medications for this visit. PAST SURGICAL HISTORY Procedure Laterality Date - DELIVERY ONLY - PAST SURGICAL HISTORY OF 1997 excision of benign oral tumor - PAST SURGICAL HISTORY OF 10/2003 repair venous aneurysm saphenous vein left ankle, excision ganglion cyst left foot FAMILY HISTORY Problem Relation Age of Onset - Psychiatry Father suicide - Breast Cancer Paternal Grandmother Social History Substance Use Topics - Smoking status: Current Every Day Smoker Packs/day: 1.00 Years: 17.00 Types: Cigarettes - Smokeless tobacco: Never Used - Alcohol use Yes Comment: occasional BP 126/74 Pulse 76 Temp 36.8 ?C (98.2 ?F) (Tympanic) Wt 79.8 kg (176 lb) SpO2 98% Objective Physical Exam Constitutional: She is oriented to person, place, and time and well-developed, well-nourished, and in no distress. HENT: Head: Normocephalic and atraumatic. Right Ear: Tympanic membrane, external ear and ear canal normal. Left Ear: Tympanic membrane, external ear and ear canal normal. Nose: Nose normal. Mouth/Throat: Uvula is midline, oropharynx is clear and moist and mucous membranes are normal. Eyes: Conjunctivae, EOM and lids are normal. Pupils are equal, round, and reactive to light. Lids are everted and swept, no foreign bodies found. Right eye exhibits no discharge, no exudate and no hordeolum. No foreign body present in the right eye. Left eye exhibits no discharge, no exudate and no hordeolum. Cardiovascular: Normal rate, regular rhythm and normal heart sounds. Pulmonary/Chest: Effort normal and breath sounds normal. Neurological: She is alert and oriented to person, place, and time. Skin: Skin is warm and dry. Psychiatric: Her mood appears anxious. She is agitated. She exhibits disordered thought content. Pt tangentially speaking about paranoid thoughts Nursing note and vitals reviewed. ASSESSMENT/PLAN: 1. Eye irritation - ICD9: 379.99, ICD10: H57.8 Pt not having symptoms here, I did not feel she needed a refil on antibiotic drops. I did refer her back to her counselor for the paranoia. Ankush Sumner PA-C Referring Provider: SELF [[id number]] Allergies As of Date: 04/22/2018 Noted Allergy Reaction WILMERLIFPam (ARIPIPRAZOLE) 09/26/2015 5 - Intolerance Comments: Cold and stiff PROZAC (FLUOXETINE HCL) 09/26/2015 5 - Intolerance Comments: Makes her mean REGLAN (METOCLOPRAMIDE HCL) 03/31/2007 5 - Intolerance Comments: Think crazy Date Reviewed: 04/22/2018 Reviewed by: Clarissa Britt Ma - Fully Assessed Reason for Visit: Eye Problem [43] Cmt: would like to speak to provider regarding eye problem Primary Visit Diagnosis:Eye irritation [H57.8] Prescriptions as of 04/22/2018 Sig: ALOE VERA ORAL Take by mouth. DIETARY SUPPLEMENT ORAL Take by mouth. baby in me B COMPLEX VITAMINS ORAL Take by mouth. PROBIOTIC 4X ORAL Take by mouth. APPLE CIDER VINEGAR ORAL Take by mouth. ALBUTEROL SULFATE HFA 90 MCG/* Inhale 2 Puffs as instructed * Patient not taking: Reported on 04/22/2018 BROMPHENIRAMINE-PSEUDOEPHEDRI* Take 5 mL by mouth four times* Patient not taking: Reported on 04/22/2018 MAGNESIUM ORAL Take by mouth. SEROQUEL XR ORAL Take by mouth. VITAMIN D-3 ORAL Take by mouth. VALACYCLOVIR 500 MG TABLET Take 500 mg by mouth twice da* RISPERIDONE 2 MG TABLET Take 2 mg by mouth twice sana* CITALOPRAM ORAL Take 1 tablet by mouth once d* MULTIVITAMIN TABLET Take one(1) tablet daily. Problem List As Of Date 04/22/2018 Noted Resolved DEPRESSIVE DISORDER NEC [F32.9] INVALID FOR* NEUROMA SURGICAL (NONNEOPLASTIC) [G58.9] INVALID FOR* Encounter Status:Closed by ANKUSH SUMNER PA-C on 04/22/18 EMERGENCY DEPARTMENT Observed: 04/10/2018 Status: F Source: [place] SUMMARY 12:51 AM [facility] REPOSITORY [facility] Medical Records Department [address] [place] [address] Emergency Department Summary 04/09/18 2332 MR#: [id number] Acct: [id number] Name: LYNSEY BACH Rep #: [id number] : 1970 47 From: Elias Boogie DO PCP: OUT OF TOWN DOCTOR Status: DEP ER - ER Visit Summary Date of Service: 04/09/18 Chief Complaint: Right eye pain History of Present Illness: The patient is a 47 F who presents with right eye pain that began today. Patient admits to some redness. Patient also admits to some watery drainage. Patient admits to a foreign body sensation but does not remember any event where a foreign body got into her eye. Later, the patient stated that she has been chopping wood recently. Patient denies any visual changes. Patient states she normally wears glasses. Physical Examination: Vital signs are stable. Patient is afebrile. Patient is in no acute distress. Pupils are equal, round, and reactive to light bilaterally. Extraocular muscles are intact. Conjunctiva is slightly injected on the right. There is a foreign body noted in the right central cornea. Anterior chamber is clear. There is no hyphema noted. Funduscopic exam was limited due to patient cooperation. The remaining physical exam is within normal limits. Emergency Department Course and Treatment: Tetracaine and fluorescein dye was applied. The foreign body was seen initially has been removed by the patient. Patient states she rubbed her eyes and felt like something came out. There is no corneal abrasion noted. Patient was given a prescription for Polytrim ophthalmic drops. Patient was instructed to follow-up with her primary care physician in 2-3 days. Patient understood and was agreeable with the plan. All questions were answered. Disposition: Discharge home Impression: Foreign body right eye This note was generated with [employer] dictation software. It may contain incorrect words, spelling, and punctuation that were not noted in review of the chart prior to signing ED Disposition - Plan for ED Patient: Disposition: Home or Assisted Living Chief Complaint: Eye Problem Diagnosis: Corneal foreign body Instructions: ED Foreign Body Cornea Prescriptions: Polymyxin B Sulf/Trimethoprim [Polytrim Eye Drops] 2 drp OP 4X/DAY #5 ml Referrals: [facility] Doctor,Out of [Primary Care Provider] - What to do if you have Problems For any increased pain, shortness of breath, bleeding, nausea or vomiting, chest pain, or any unexpected problems, contact your Primary Care Provider. Call [facility] ([phone]) or report to the closest Emergency Room. Call 911 if necessary. 04/10/18 0051 <Electronically signed by Elias Boogie DO> Date Elias Boogie DO Cosigner Signature (If Indicated): Date CC: OUT OF TOWN DOCTOR DISCHARGE INSTRUCTION Observed: 02/07/2018 Status: F Source: [place] 11:21 PM [facility] REPOSITORY [facility] Medical Records Department [address] [place] [address] Discharge Instruction 02/07/182319 MR#: [id number] Acct: [id number] Name: LYNSEY BACH Rep #: [id number] : 1970 47 From: Lilia Ricardo MD PCP: OUT OF [facility] DOCTOR Status: REG ER ED Disposition - Plan for ED Patient: Chief Complaint: Eye Problem Instructions: ED Conjunctivitis Bacterial Referrals: [facility] Doctor,Out of [Primary Care Provider] - Counseling,Center [GROUP OF PHYSICIANS] - What to do if you have Problems For any increased pain, shortness of breath, bleeding, nausea or vomiting, chest pain, or any unexpected problems, contact your Primary Care Provider. Call [facility] ([phone]) or report to the closest Emergency Room. Call 911 if necessary. 02/07/182320 <Electronically signed by Lilia Ricardo MD> Date Lilia Sethiigner Signature (If Indicated): Date CC: OUT OF TOWN DOCTOR EMERGENCY DEPARTMENT Observed: 02/07/2018 Status: F Source: [place] SUMMARY 11:20 PM [facility] Medical Records Department [address] [place] [address] Emergency Department Summary 02/07/18 2307 MR#: [id number] Acct: [id number] Name: LYNSEY BACH Rep #: [id number] : 1970 47 From: Lilia Ricardo MD PCP: OUT OF [facility] DOCTOR Status: REG ER - ER Visit Summary Date of Service: 02/07/18 Chief Complaint: Bilateral eye redness History of Present Illness: The patient is a 47 F presenting for redness in both eyes. Patient states that she noticed this one week ago. She has had no drainage or crusting. She has no itching. No pain or burning. No visual changes. She does not wear contacts. She denies chemical exposure. Denies history of injury. She was possibly exposed to pinkeye. She has a history of schizophrenia. She denies hallucinations. She has no suicidal thoughts or plan. She has an appointment with her psychiatrist tomorrow. Physical Examination: Vitals are stable. Patient is afebrile. Alert no acute distress. HEENT exam mild bilateral conjunctival injection. PERRL, EOMI Neck is supple. Lungs are clear and equal bilaterally. Heart is regular rate and rhythm. Extremities are unremarkable. Skin is warm and dry. Remainder of exam is unremarkable. Emergency Department Course and Treatment: Visual acuity is 20/20 OD, 20/20 OS, 20/20 OU. She is given bacitracin ophthalmic ointment. Advised to follow- up with her primary care physician and her psychiatrist as scheduled. Advised return to ED for worsening complaints. Disposition: Discharge home Impression: Mild conjunctivitis, bilateral This note was generated with [employer] dictation software. It may contain incorrect words, spelling, and punctuation that were not noted in review of the chart prior to signing ED Disposition - Plan for ED Patient: Chief Complaint: Eye Problem Referrals: [facility] Doctor,Out of [Primary Care Provider] - What to do if you have Problems For any increased pain, shortness of breath, bleeding, nausea or vomiting, chest pain, or any unexpected problems, contact your Primary Care Provider. Call [facility] ([phone]) or report to the closest Emergency Room. Call 911 if necessary. 02/07/18 8210 <Electronically signed by Lilia Ricardo MD> Date Lilia Ricardo MD Cosigner Signature (If Indicated): Date CC: OUT OF TOWN DOCTOR PROGRESS Observed: 11/25/2017 Status: COMPLETED Source: [place] 1:17 PM [facility] REPOSITORY HNO ID: [id number] Author: Samir Mendiola) Ethan Service: (none) Author Type: Nurse Practitioner Type: Progress Notes Filed: 11/25/2017 2:05 PM Note Text: Subjective HPI Patient is a 47 year old female here today for an unknown history of head congestion and nasal drainage. States she was treated for tooth infection and was taking Amoxicillin 500mg TID in stead of BID. States she read the label incorrectly. Stated her tooth is feeling better. Nothing makes it better or worse. No other concerns at this time. Review of Systems Constitutional: Negative for chills, fever and malaise/fatigue. HENT: Positive for congestion. Negative for ear pain and sore throat. Respiratory: Negative for cough, sputum production, shortness of breath and wheezing. Cardiovascular: Negative. Gastrointestinal: Negative for nausea and vomiting. Musculoskeletal: Negative for myalgias. Neurological: Positive for headaches (sinus pressure). Endo/Heme/Allergies: Negative for environmental allergies. All other systems reviewed and are negative. PAST MEDICAL HISTORY Diagnosis Date - Depressive disorder, not elsewhere classified PAST SURGICAL HISTORY Procedure Laterality Date - DELIVERY ONLY - PAST SURGICAL HISTORY OF 1997 excision of benign oral tumor - PAST SURGICAL HISTORY OF 10/2003 repair venous aneurysm saphenous vein left ankle, excision ganglion cyst left foot ALLERGIES Abilify [Aripiprazole]; Prozac [Fluoxetine Hcl]; Reglan [Metoclopramide Hcl] MEDICATIONS DIETARY SUPPLEMENT ORAL Take by mouth. baby in co VITAMIN B COMPLEX (B COMPLEX VITAMINS ORAL) Take by mouth. ALOE VERA ORAL Take by mouth. Amoxicillin 500 mg tablet Take 1 tablet by mouth three times daily as needed for up to 4 days. amoxicillin (POLYMOX, AMOXIL) 500 mg capsule Take 1 capsule by mouth twice daily for 10 days. B INFANTIS/B ANI/B JOSE/B BIFID (PROBIOTIC 4X ORAL) Take by mouth. APPLE CIDER VINEGAR ORAL Take by mouth. albuterol HFA (VENTOLIN HFA) 90 mcg/actuation inhaler Inhale 2 Puffs as instructed every 4 hours as needed for Wheezing/Shortness of Breath. Wivbmmxyxpgdgrk-Irwqxbrro-MK (BROMFED DM) 2-30-10 mg/5 mL syrup Take 5 mL by mouth four times daily as needed. MAGNESIUM ORAL Take by mouth. QUETIAPINE FUMARATE (SEROQUEL XR ORAL) Take by mouth. CALCIUM CARBONATE/VITAMIN D3 (VITAMIN D-3 ORAL) Take by mouth. valACYclovir (VALTREX) 500 mg tablet Take 500 mg by mouth twice daily. risperiDONE (RISPERDAL) 2 mg tablet Take 2 mg by mouth twice daily. CITALOPRAM HYDROBROMIDE (CITALOPRAM ORAL) Take 1 tablet by mouth once daily. MULTIVITAMIN TAB Take one(1) tablet daily. FAMILY HISTORY Problem Relation Age of Onset - Psychiatry Father suicide - Breast Cancer Paternal Grandmother Social History Substance Use Topics - Smoking status: Current Every Day Smoker Packs/day: 1.00 Years: 17.00 Types: Cigarettes - Smokeless tobacco: Never Used - Alcohol use Yes Comment: occasional BP 122/78 Pulse 78 Temp 36.9 ?C (98.4 ?F) (Tympanic) Resp 16 Wt 83.5 kg (184 lb) LMP (LMP Unknown) Objective Physical Exam Constitutional: She is well-developed, well-nourished, and in no distress. Vital signs are normal. Mildly ill. HENT: Head: Normocephalic and atraumatic. Right Ear: Tympanic membrane, external ear and ear canal normal. Left Ear: Tympanic membrane, external ear and ear canal normal. Nose: Mucosal edema and rhinorrhea present. Right sinus exhibits no maxillary sinus tenderness and no frontal sinus tenderness. Left sinus exhibits no maxillary sinus tenderness and no frontal sinus tenderness. Mouth/Throat: Uvula is midline, oropharynx is clear and moist and mucous membranes are normal. No oropharyngeal exudate, posterior oropharyngeal edema or posterior oropharyngeal erythema. No signs of oral infection noted Neck: Neck supple. Cardiovascular: Normal rate, regular rhythm and normal heart sounds. Pulmonary/Chest: Effort normal and breath sounds normal. She has no wheezes. She has no rales. Lymphadenopathy: Head (right side): No submental, no submandibular and no tonsillar adenopathy present. Head (left side): No submental, no submandibular and no tonsillar adenopathy present. She has no cervical adenopathy. Submandibular fullness. Neurological: She is alert. Skin: Skin is warm and dry. Nursing note and vitals reviewed. ASSESSMENT/PLAN: 1. Viral URI with cough - ICD9: 465.9, ICD10: J06.9, B97.89 (primary diagnosis) - Discussed viral etiology and rationale for treatment. - Symptomatic treatment with prn analgesia - Supportive care with fluids and rest - The patient may also use OTC cough and cold meds as needed and warm salt water gargles, throat lozenges and/or OTC throat spray as needed. - Follow up in 3-5 days if symptoms persist or sooner if worsening of symptoms 2. Tooth infection - ICD9: 522.4, ICD10: K04.7 - Will give enough amoxicillin to finish her ten day course 500 mg TID - Warm salt water gargles. - Follow up with dentist - AMOXICILLIN 500 MG TABLET Prescription instructions reviewed with patient as applicable. Patient advised if symptoms do not improve or if symptoms worsen sooner, to contact their primary care physician. Potential red flag symptoms discussed with the patient. Reviewed appropriate action plan to take if red flag symptoms occur. Patient agreeable to treatment plan. Samir Long CNP PROGRESS Observed: 11/19/2017 Status: COMPLETED Source: [place] 2:06 PM [facility] REPOSITORY HNO ID: [id number] Author: Arnoldo Nicole Service: (none) Author Type: Nurse Practitioner Type: Progress Notes Filed: 11/19/2017 2:42 PM Note Text: HPI DONALD Bach is a 47 year old female who presents today for CC of tooth pain. This started 2 weeks. Has tried nothing. Symptoms are worsened by nothing. Risk factors recent dental work/ poor dental health. Review of Systems Constitutional: Negative for chills and fever. Respiratory: Negative for cough, shortness of breath and wheezing. Cardiovascular: Negative for chest pain. Skin: Negative for itching and rash. PAST MEDICAL HISTORY Diagnosis Date - Depressive disorder, not elsewhere classified PAST SURGICAL HISTORY Procedure Laterality Date - DELIVERY ONLY - PAST SURGICAL HISTORY OF 1997 excision of benign oral tumor - PAST SURGICAL HISTORY OF 10/2003 repair venous aneurysm saphenous vein left ankle, excision ganglion cyst left foot ALLERGIES Abilify [Aripiprazole]; Prozac [Fluoxetine Hcl]; Reglan [Metoclopramide Hcl] MEDICATIONS DIETARY SUPPLEMENT ORAL Take by mouth. baby in me VITAMIN B COMPLEX (B COMPLEX VITAMINS ORAL) Take by mouth. B INFANTIS/B ANI/B JOSE/B BIFID (PROBIOTIC 4X ORAL) Take by mouth. APPLE CIDER VINEGAR ORAL Take by mouth. albuterol HFA (VENTOLIN HFA) 90 mcg/actuation inhaler Inhale 2 Puffs as instructed every 4 hours as needed for Wheezing/Shortness of Breath. Mppmuoxjyjedcdj-Uzvjkryly-IA (BROMFED DM) 2-30-10 mg/5 mL syrup Take 5 mL by mouth four times daily as needed. ALOE VERA ORAL Take by mouth. MAGNESIUM ORAL Take by mouth. QUETIAPINE FUMARATE (SEROQUEL XR ORAL) Take by mouth. CALCIUM CARBONATE/VITAMIN D3 (VITAMIN D-3 ORAL) Take by mouth. valACYclovir (VALTREX) 500 mg tablet Take 500 mg by mouth twice daily. risperiDONE (RISPERDAL) 2 mg tablet Take 2 mg by mouth twice daily. CITALOPRAM HYDROBROMIDE (CITALOPRAM ORAL) Take 1 tablet by mouth once daily. MULTIVITAMIN TAB Take one(1) tablet daily. FAMILY HISTORY Problem Relation Age of Onset - Psychiatry Father suicide - Breast Cancer Paternal Grandmother Social History Substance Use Topics - Smoking status: Current Every Day Smoker Packs/day: 1.00 Years: 17.00 Types: Cigarettes - Smokeless tobacco: Never Used - Alcohol use Yes Comment: occasional Blood pressure 124/76, pulse 84, temperature 37.1 ?C (98.7 ?F), temperature source Tympanic, resp. rate 20, weight 84.8 kg (187 lb). Physical Exam Constitutional: She is oriented to person, place, and time and well-developed, well-nourished, and in no distress. Non-toxic appearance. She does not have a sickly appearance. No distress. HENT: Head: Normocephalic and atraumatic. Right Ear: Hearing, tympanic membrane, external ear and ear canal normal. Left Ear: Hearing, tympanic membrane, external ear and ear canal normal. Nose: Nose normal. Mouth/Throat: Uvula is midline, oropharynx is clear and moist and mucous membranes are normal. Eyes: Conjunctivae and lids are normal. Pupils are equal, round, and reactive to light. Right eye exhibits no discharge. Left eye exhibits no discharge. No scleral icterus. Neck: Trachea normal and normal range of motion. Neck supple. Cardiovascular: Normal rate, regular rhythm and normal heart sounds. Pulmonary/Chest: Effort normal and breath sounds normal. Lymphadenopathy: She has no cervical adenopathy. Neurological: She is alert and oriented to person, place, and time. Skin: No rash noted. She is not diaphoretic. ASSESSMENT/PLAN: 1. Tooth infection - ICD9: 522.4, ICD10: K04.7 -take medication as prescribed -follow up with dentist next week -discussed red flags and reasons for urgent follow up Prescription instructions reviewed with patient as applicable. Patient advised if symptoms do not improve or if symptoms worsen sooner, to contact the office for further evaluation by their primary care physician. Potential red flag symptoms discussed with the patient. Reviewed appropriate action plan to take if red flag symptoms occur. Patient agreeable to treatment plan. Arnoldo Nicole CNP DISCHARGE INSTRUCTION Observed: 11/16/2017 Status: F Source: [place] 12:15 AM [facility] REPOSITORY [facility] Medical Records Department [address] [place] [address] Discharge Instruction 11/16/17 0013 MR#: [id number] Acct: [id number] Name: LYNSEY BACH Rep #: [id number] : 1970 47 From: Adia Dawson PCP: OUT OF TOWN DOCTOR Status: PRE ER ED Disposition - Plan for ED Patient: Chief Complaint: Wound Check Instructions: ED Folliculitis Prescriptions: Bacitracin Ointment 1 applic TOPICAL TID 7 Days #1 tube Referrals: Binh Chaudhry [Other] - 3-5 Days What to do if you have Problems For any increased pain, shortness of breath, bleeding, nausea or vomiting, chest pain, or any unexpected problems, contact your Primary Care Provider. Call [facility] ([phone]) or report to the closest Emergency Room. Call 911 if necessary. 11/16/17 0015 <Electronically signed by Adia Dawson > Date Adia Eunice Cosigner Signature (If Indicated): Date CC: No Primary Care Physician; OUT OF TOWN DOCTOR EMERGENCY DEPARTMENT Observed: 11/16/2017 Status: F Source: [place] SUMMARY 12:12 AM [facility] REPOSITORY [facility] Medical Records Department [address] [place] [address] Emergency Department Summary 11/16/17 0009 MR#: [id number] Acct: [id number] Name: LYNSEY BACH Rep #: [id number] : 1970 47 From: Adia Dawson PCP: OUT OF TOWN DOCTOR Status: PRE ER - ER Visit Summary Date of Service: 11/16/17 Chief Complaint: [Vaginal lump] History of Present Illness: The patient is a 47 F [who presents to the emergency department with a vaginal lump. She noticed it today while masturbating. It is not painful. She was messing with it. She do not know what it looked like prior to her messing with it. No fevers or chills no urinary symptoms she states she has not been sexually active in 13 years. She is a very poor historian but does state that she had possible herpes remotely. She is also had a history of folliculitis.] Physical Examination: [] Blood pressure 141/93 other vitals within normal limits Well-nourished female in no acute distress exam reveals 1 shallow based ulcer on the mons pubis at the base of a follicle it is not tender there is no drainage there is no surrounding cellulitis there is no abscess or mass She is slightly anxious with flight of ideas Test Results: [] Emergency Department Course and Treatment: [HSV culture was sent. I think this is likely a folliculitis. She will be given bacitracin ointment. She was told she would be contacted if HSV culture came back positive. She is given precautions for which to return.] Treatment Plan: [] Disposition: [Discharge] Impression: [1. Pubic ulcer secondary to folliculitis] This note was generated with Tagk[employer] software. It may contain incorrect words, spelling, and punctuation that were not noted in review of the chart prior to signing ED Disposition - Plan for ED Patient: Chief Complaint: Wound Check Referrals: [facility] Doctor,Out of [Primary Care Provider] - What to do if you have Problems For any increased pain, shortness of breath, bleeding, nausea or vomiting, chest pain, or any unexpected problems, contact your Primary Care Provider. Call [facility] ([phone]) or report to the closest Emergency Room. Call 911 if necessary. 11/16/17 0012 <Electronically signed by Adia Dawson > Date Adia Dawson Cosigner Signature (If Indicated): Date CC: No Primary Care Physician; OUT OF TOWN DOCTOR HSV CULTURE AND Collected: 11/16/2017 Status: F Source: NATACHA TYPING 12:04 AM [facility] REPOSITORY TYPE CODE TESTS RESULT OUT OF RANGE REFERENCE UNITS LAB L800.7510 . Normal HSV C AND Comment T 8250 Result Comment: Negative No Herpes simplex virus isolated. Performed at: [facility] [id number] Technologist Development: Tee Escobar PhD, Phone: [phone] Performed By: #### L800.7510 #### [facility] (refer to report for specific site) refer to report for address and phone number ALLERGIES ALLERGIES DATE TYPE / NAME / CODE REACTION SEVERITY SOURCE CODE 09/23/2018 Drug fluoxetine Other Unknown [place] Allergy/41 [id number][facility] [id number] [place] [address]) Repository 09/23/2018 Drug metoclopramide Other Unknown [place] Allergy/41 HCl/[id number]([address]) Repository 09/23/2018 Drug Fish Containing Other Unknown [place] Allergy/41 Products/[id number]( [address]) Repository 09/23/2018 Drug aripiprazole/[id number] Other Unknown [place] Allergy/41 852(RXNORM) Community [id number]([facility]) Repository 09/26/2015 DRUG ARIPIPRAZOLE INTOLERANCE [address] Other [id number]([facility]) Repository 09/26/2015 DRUG FLUOXETINE HCL INTOLERANCE [address] Other [id number]([facility]) Repository 03/31/2007 DRUG METOCLOPRAMIDE HCL INTOLERANCE [address] Other [id number]([facility]) Repository ENCOUNTERS ENCOUNTERS ADMIT/DISCHARGE ACCOUNT ADMITTING ENCOUNTER LOCATION SOURCE NUMBER CLASS 09/23/2018/09/23/20 [id number] Emergency [address] ing:ED Repository 09/14/2018/09/14/20 [id number] Emergency [address] Other [place] Repository 09/13/2018/09/13/20 [id number] Emergency [address] ing:ED Repository 06/16/2018/06/16/20 [id number] Emergency [address] ing:ED Repository 04/28/2018/04/28/20 [id number] Emergency [address] ing:ED Repository 04/22/2018/04/24/20 [id number] Ambulatory [address] Repository 04/09/2018/04/10/20 [id number] Emergency [address] ing:ED Repository 02/07/2018/02/08/20 [id number] Emergency [address] ing:ED Repository 11/25/2017/11/25/19 [id number] Ambulatory [address] Main [place] Repository 11/19/2017/11/19/19 [id number] Ambulatory [address] Main [place] Repository 11/15/2017/11/16/19 [id number] Emergency [address] ing:ED Repository PAYERS PAYERS ENCOUNTER GUARANTOR PAYER SUBSCRIBER SOURCE 09/23/2018 LYNSEY L [id number] Primary LYNSEY L PECKDOB: Natacha PATINO Insurance:[facility] [id number] [address], [place] [address]Tel: [phone]) Number: Repository [phone] () [id number] Date:9870-09-23HCHV [address]S [address] [address]UL: 09/23/2018 Secondary NOT GIVENUNK Natacha Insurance:SELF PAY [facility] Number: Effective Repository Date:2018-09-23 09/13/2018 LYNSEY L [id number] Primary LYNSEY L PECKDOB: [place] MEGAN DRLOT Insurance:[facility] [id number] [address], [place] [address]Tel: [phone]) Number: Repository [phone] () [id number] Date:2248-27-89KVED [address]S [address] [address]ZS: 09/13/2018 Secondary NOT GIVENUNK [place] Insurance:SELF PAY [facility] Number: Effective Repository Date:2018-09-13 06/16/2018 LYNSEY L [id number] Primary LYNSEY L PECKDOB: Natacha MEGAN DRLOT Insurance:[facility] [id number] [address], [place] [address]Tel: [phone]) Number: Repository [phone] () [id number] Date:[id number] [address], [place] [address]FU: 06/16/2018 Secondary NOT GIVENUNK Natacha Insurance:SELF PAY [facility] Number: Effective Repository Date:2018-06-16 04/28/2018 LYNSEY L [id number] Primary LYNSEY L PECKDOB: [place] MEGAN DRLOT Insurance:[facility] [id number] [address], [place] [address]Tel: [phone]) Number: Repository [phone] () [id number] Date:7217-98-16NLZJ [address] [address]AE: 04/28/2018 Secondary NOT GIVENUNK [place] Insurance:SELF PAY [facility] Number: Effective Repository Date:2018-04-28 04/09/2018 LYNSEY L [id number] Primary LYNSEY L PECKDOB: Natacha MEGNA DRLOT Insurance[facility] [id number] [address] *[place] [facility] [address]Hlw: [phone]) Number: Repository [phone] () [id number] Date:4217-97-54JT [address] [address]LD: 04/09/2018 Secondary NOT GIVENUNK [place] Insurance:SELF PAY [facility] Number: Effective Repository Date:2018-04-09 02/07/2018 LYNSEY L [id number] Primary LYNSEY L PECKDOB: [place] MEGAN DRLOT Insurance:MEDICARE [id number] PART A [facility] [address]Koz: Number: Repository [phone] [id number] () Date:2018-02-07 02/07/2018 Secondary LYNSEY L PECKDOB: [place] Insurance:[facility] [id number] [id number] Repository Date:2018-02-07[facility] [address]ATTN: [place] [address]NC: 02/07/2018 Tertiary NOT GIVENUNK Natacha Insurance:SELF PAY [facility] Number: Effective Repository Date:2018-02-07 11/15/2017 LYNSEY L [id number] Primary LYNSEY L PECKDOB: Nat[place] MEGAN DRLOT Insurance:MEDICARE [id number] [address]Myc: Number: Repository [phone] [id number] () Date:2017-11-15 11/15/2017 Secondary LYNSEY L PECKDOB: [place] Insurance:[facility] [id number] Number: [facility] [id number] Repository Date:2017-11-15[address]ATTN: [place] [address]CW: 11/15/2017 Tertiary NOT GIVENUNK Nat[place] Insurance:SELF PAY [facility] [address] Number: Effective Repository Date:2017-11-15
== END 2018-09-23 14:27 | disposition home or self-care (01) ==
PROVIDERS: Emergency Provider Emergency Medicine
DX: R07.9 Chest pain, unspecified (principal); R91.1 Solitary pulmonary nodule; J02.9 Acute pharyngitis, unspecified; R06.02 Shortness of breath; R05 Cough; Z72.0 Tobacco use
CPT/HCPCS: 71275; 80048; 84484; 84703; 85025; 93005; 99284; Q9967; A4216

== ENCOUNTER 2018-12-04 23:10 | Emergency (ER) | payer MEDICARE, SELFPAY ==
[2018-12-04 23:11] VITALS: BP 129/98; PULSE 91; RESP 18; TEMP 36.8; O2SAT 98; BMI 29.2
--- NOTE | 2018-12-04 23:41 | ED.DCSUM_ITS ---
- ER Visit Summary Date of Service: 12/04/18 Chief Complaint: Right hip pain History of Present Illness: The patient is a 48 F presents to the emergency department right hip pain. Patient states she is been having symptoms for the past month. States she had a dull ache in the outside of her right hip. She states over the past 3 days, is worsened. She cannot recall any specific trauma. She states when she walks, does hurt more. She is noticed no swelling in the legs. She denies any history of blood clot. She denies any fevers or chills. She has not taken anything for it. Physical Examination: Vital signs reviewed General: Well-nourished, well-developed Head: Normocephalic, atraumatic Eyes: Pupils equal and reactive, extraocular muscles intact Neck, supple, no lymphadenopathy Heart: Regular rate and rhythm Respiratory: No distress, clear bilaterally Abdomen: Soft, nontender, nondistended, no peritoneal signs Back: Nontender Extremities: Mild tenderness to palpation over the right greater trochanter, no pain with logroll, no erythema, 2+ symmetric lower extremity pulses, no edema, no cords Skin: Normal color no rash Neuro: Alert and oriented, no focal or lateralizing deficits Test Results: [] Emergency Department Course and Treatment: The patient presents with right hip pain. Her symptoms do seem most consistent with a trochanteric bursitis. She has no erythema or edema. She has no pain with logroll. She is point tender over the greater trochanter. Pain films were obtained and are unremarkable. I am going to treat the patient with anti-inflammatories. She is able to walk with a steady gait. She is comfortable with this plan of care. Treatment Plan: [] Disposition: Discharge Impression: 1. Right trochanteric bursitis This note was generated with [employer] dictation software. It may contain incorrect words, spelling, and punctuation that were not noted in review of the chart prior to signing ED Disposition - Plan for ED Patient: Instructions: ED Sprain Hip Prescriptions: Naproxen [Naprosyn] 500 mg PO BID PRN #20 tab Referrals: [facility] Doctor,Out of [Primary Care Provider] -
--- NOTE | 2018-12-04 23:50 | RAD_ITS ---
STUDY: X-RAY - RIGHT HIP REASON FOR EXAM: Female, 48 years old. Right hip pain for one month. TECHNIQUE: 2 views of the hip. AP pelvis. COMPARISON: None. FINDINGS: Normal right femoral head, neck, intertrochanteric region and visualized proximal femur. Normal acetabulum. Normal hip joint. Normal visualized superior and inferior pubic rami and ischial tuberosities. Remainder of the pelvis is normal. RAD/HIP, UNI W/ Pelvis 2-3 Views IMPRESSION: Normal pelvis and right hip. Electronically Signed: Latrell Fierro MD at 0:13 EST , Service support ,
[2018-12-05] MEDS: Naproxen 500 MG Tablet PO (00:09)
== END 2018-12-05 00:11 | disposition home or self-care (01) ==
LOC: ED 23:41
PROVIDERS: Emergency Provider Emergency Medicine
DX: M70.61 Trochanteric bursitis, right hip (principal); Y93.9 Activity, unspecified; Z72.0 Tobacco use
CPT/HCPCS: 73502; 99283

== ENCOUNTER → 2019-08-16 17:11 | Outpatient (CLI) | payer BC, MEDICAID, SELFPAY ==
--- NOTE | 2019-08-16 17:15 | CT_ITS ---
STUDY: CT CHEST REASON FOR EXAM: Female, 48 years old. Nodule follow up RADIATION DOSAGE (If Supplied By Facility): CTDIvol = ( 11.06 ) mGy, DLP = ( 375.91 ) mGycm. Individualized dose optimization techniques were used for this CT.? TECHNIQUE: 2.5 mm helical cuts were performed through the chest without contrast. MPR performed. COMPARISON: CTA chest from 09/23/2018 FINDINGS: Noncalcified pleural nodules noted in both lung li. There is a 4.8 mm nodule in the left lower lobe best seen on axial image 87. In the left lung, there are subcentimeter pleural-based nodules on axial image 74 in the right middle lobe measuring 3 mm. Another 3 mm nodule noted in the right lower lobe on axial image 85, and a 3 mm nodule in the right upper lobe on axial image 24. These were not clearly identified on the previous study, likely due to technique. No suspicious noncalcified 1 cm or greater nodule. No organized infiltrate or effusion. No groundglass opacifications. There are scattered subcentimeter mediastinal lymph nodes. CT/Chest without Contrast IMPRESSION: Multiple subcentimeter pleural-based noncalcified nodules in both lung li as described. Six-month follow-up recommended to ensure stability No organized infiltrate or effusion Subcentimeter mediastinal adenopathy Electronically Signed: Primo Lopez MD at 18:19 EST , Service support ,
== END ==
DX: R91.1 Solitary pulmonary nodule (principal)
CPT/HCPCS: 71250

== ENCOUNTER 2019-12-31 01:40 | Emergency (ER) | payer MEDICARE, MEDICAID, SELFPAY ==
[2019-12-31 01:43] VITALS: BP 114/75; PULSE 89; RESP 16; TEMP 36.8; O2SAT 100
--- NOTE | 2019-12-31 02:03 | ED.DCSUM_ITS ---
- ER Visit Summary Date of Service: 12/31/19 Chief Complaint: [Headache] History of Present Illness: The patient is a 49 F [presents the emergency department complaint of a headache that started today. She really cannot tell me when today. She states that she is had intermittent sharp stabbing pains to the right side of her head. She currently does not have a headache. She denies any nausea or vomiting. She denies photophobia. She denies any recent falls or head injuries. Patient states that she has had traumatic brain injuries in the past and she was wondering if she could have developed arthritis in her head. Patient denies recent illness. No family history of brain tumors or brain aneurysms. She attempted to call a taxi to bring her to the emergency department but kept getting transferred and could not get a hold of anybody so she called EMS to bring her in. Patient ambulated into department.] Physical Examination: [HEENT-PERRLA, EOMI. Cranial nerves II through XII grossly intact. TMs clear. Mucous membranes moist. No adenopathy. Cardiovascular-regular rate and rhythm without murmur or ectopy Lungs-clear to auscultation, chest wall stable without crepitus or subcu emphysema Abdomen-normoactive bowel sounds, soft, nontender, no rebound or rigidity, no peritoneal signs. Neuro kned-dylptx-bhxj and heel garcia testing within normal limits, negative Romberg, negative pronator, fundi benign Extremities-intact ?4, normal range of motion, normal pulses, atraumatic] Test Results: [None indicated] Emergency Department Course and Treatment: [None. Patient has no concerning signs or symptoms. Her headaches currently resolved. Etiology of her headache is unclear but states that she does not anything for pain and just wants to take Tylenol.] Treatment Plan: [Follow-up for discomfort and follow-up with primary care physician 3 to 5 days.] Disposition: [Discharged home in stable condition.] Impression: [Cephalgia-resolved] This note was generated with [employer] dictation software. It may contain incorrect words, spelling, and punctuation that were not noted in review of the chart prior to signing ED Disposition - Plan for ED Patient: Instructions: HEADACHE, Unspecified Referrals: Kimmy Cho MD [Primary Care Provider] - 3-5 Days
[2019-12-31 02:12] VITALS: BP 114/75; PULSE 89; RESP 16; O2SAT 100
--- NOTE | 2020-01-02 08:43 | ED.RN ---
pt called for followup and got a [place] dr. Pt was given number for Dr Maxwell.
== END 2019-12-31 05:10 | disposition home or self-care (01) ==
PROVIDERS: Emergency Provider Emergency Medicine; PCP Radiology Diagnostic Radiology
DX: R51 Headache (principal); Z72.0 Tobacco use; Z87.820 Personal history of traumatic brain injury
CPT/HCPCS: 99284

== ENCOUNTER → 2020-03-12 13:41 | Outpatient (CLI) | payer MEDICARE, MEDICAID, SELFPAY ==
--- NOTE | 2020-03-12 13:49 | CT_ITS ---
STUDY: CT CHEST WITHOUT CONTRAST REASON FOR EXAM: Female, 49 years old. Lung nodule follow up RADIATION DOSAGE (If Supplied By Facility): CTDIvol = ( 14.37 ) mGy, DLP = ( 509.89 ) mGycm TECHNIQUE: Transaxial imaging was performed without the administration of intravenous contrast material. Multiplanar coronal and sagittal images were reformatted. Individualized dose optimization techniques were used for this CT. COMPARISON: Comparison is made with prior examination dated August 16, 2019. FINDINGS: Stable small benign appearing bilateral axillary lymph nodes. Stable 5 mm noncalcified nodule in the lateral peripheral aspect of the left lower lobe as seen on axial image #88. Mild degree of emphysematous changes. Stable 3 mm nodule in the right lower lobe as seen on axial image #91. Stable 3 mm nodule in the right upper lobe as seen on axial image #24. There is no demonstrated pleural abnormality. Normal heart and pericardium. There are multiple small lymph nodes within the mediastinum, which are normal in size and morphology most compatible with reactive lymph hyperplasia. Normal hilar regions. Normal unenhanced pulmonary arteries. Normal aorta arch and descending thoracic aorta. Normal osseous structures. There is a 3 mm nonobstructive calculus in the upper pole of the left kidney. CT/Chest without Contrast IMPRESSION: Stable examination. A 12 month follow-up is recommended. Electronically Signed: Haim Garcia, at 15:20 EDT , Service support ,
--- OUTSIDE RECORDS SUMMARY | 2020-07-27 07:12 | XMS RPT_ITS | CCD ---
:1970 External Reference #:[id number] Author Organization [facility] Care Team Providers Name Role Phone SUDHAKAR ROMAN Unavailable Unavailable Hailee Purcell Primary Care Provider Allergies Reported Allergen Reaction(s) Severity Date of Onset Location ARIPiprazole Translations: Intolerance 09-26-2015 [facility] Other [ ARIPIPRAZOLE] [facility] FLUoxetine Translations: [ Intolerance 09-26-2015 [facility] Other FLUOXETINE HCL] [facility] Metoclopramide Intolerance 03-31-2007 [facility] Cli hussain Other Translations: [ [facility] METOCLOPRAMIDE HCL] Medications Medication Name Sig Date Prescriber Location Acetaminophen acetaminophen (TYLENOL) 09-14-2018 Sudhakar Roman [facility] 500 mg tablet Take 1 ([id number]) tablet by mouth every 4 hours as needed for Pain. 24 tablet 0 09/14/2018 Active Comment: Take 1 tablet by mouth every 4 hours as needed for Pain. ALOE VERA ORAL ALOE VERA ORAL Take by mouth[facility] (94895) 0 Active ALOE VERA ORAL Take by mouth. [address] [facility] (81797) Comment: Take by mouth. Apple Cider Vinegar APPLE CIDER VINEGAR ORAL Ccf Provi [facility] (15956) Take by mouth. 0 Active APPLE CIDER VINEGAR ORAL Take by mouth. [facility] ([facility] Active Comment: Take by mouth. B INFANTIS/B ANI/B JOSE/B B INFANTIS/B ANI/B JOSE/B Ccf Provider [facility] BIFID (PROBIOTIC 4X BIFID (PROBIOTIC 4X ( 78820) ORAL) ORAL) Take by mouth. 0 Active B INFANTIS/B ANI/B JOSE/B BIFID (PROBIOTIC 4X Ccf Provider [facility] (82836) ORAL) Take by mouth. 0 Active Comment: Take by mouth. Calcium Carbonate / CALCIUM CARBONATE/VITAMIN D3 [facility] vitamin D3 (VITAMIN D-3 ORAL) Take by ( 65411) mouth. 0 Active CALCIUM CARBONATE/VITAMIN D3 (VITAMIN D-3 Ccf Pr [facility] (26203) ORAL) Take by mouth. 0 Active Comment: Take by mouth. cholecalciferol, vitamin cholecalciferol, vitamin Ccf Provider Ccf [facility] D3, (VITAMIN D3 ORAL) D3, (VITAMIN D3 ORAL) Provider (29089) Take by mouth. 0 Active Comment: Take by mouth. Citalopram CITALOPRAM HYDROBROMIDE Ccf Provider [facility] ([id number]) (CITALOPRAM ORAL) Take 1 tablet by mouth once daily. 0 Active CITALOPRAM HYDROBROMIDE (CITALOPRAM ORAL) Ccf Pr [facility] (22745) Take 1 tablet by mouth once daily. 0 Active Comment: Take 1 tablet by mouth once daily. DIETARY SUPPLEMENT ORAL DIETARY SUPPLEMENT ORAL Ccf Pr [facility] Take by mouth. baby in (441 95) me 0 Active DIETARY SUPPLEMENT ORAL Take by mouth. baby Ccf Provider [facility] (80724) in me 0 Active Comment: Take by mouth. baby in me Haloperidol haloperidol decanoate 02-07-2019 Ccf Provider [facility] (HALDOL) 50 mg/mL (08757) injection lurasidone LATUDA 120 mg 02-12-2019 [facility] (18653) Magnesium MAGNESIUM ORAL Take by Ccf Provider [facility] mouth. 0 Active (07547) MAGNESIUM ORAL Take by mouth. 0 Active Ccf Provi theresa [facility] (56313) Comment: Take by mouth. MULTIVITAMIN TAB MULTIVITAMIN TAB Take 06-08-2006 [facility] one(1) tablet daily. 0 (4419 5) 06/08/2006 Active MULTIVITAMIN TAB Take one(1) 06-08-[address] [facility] (53427) tablet daily. 0 06/08/2006 Active Comment: Take one(1) tablet daily. omega-3 fatty acids omega-3 fatty acids 02-25-2020 Ccf Provider [facility] 1,000 mg cap 1,000 mg cap Take (09973) 1,000 mg by mouth. 0 02/25/2020 Active omega-3 fatty acids 1,000 mg cap 02-25-2020 Ccf Provider [facility] (08451) Take 1,000 mg by mouth. 0 02/25/2020 Active Comment: Take 1,000 mg by mouth. OXcarbazepine OXcarbazepine (TRILEPTAL) 02-12-2019 Ccf Provider C [facility] 300 mg tablet (03313) QUEtiapine QUETIAPINE FUMARATE Ccf Provider Ewelina [facility] (SEROQUEL XR ORAL) Take by ( 87573) mouth. 0 Active QUETIAPINE FUMARATE (SEROQUEL XR ORAL) Take Ccf Provider [facility] (79410) by mouth. 0 Active Comment: Take by mouth. risperiDONE risperiDONE (RISPERDAL) 2 06-06-[address] [facility] mg tablet risperiDONE (61330 ) Risperidone Active 2 MG DAILY May 08, 2020 4:26am 05-08-[address] [facility] (24929) 0 06/06/2014 Active Comment: Take 2 mg by mouth twice pk ly. risperiDONE Risperidone Acti ve 2 MG DAILY May 08, 2020 4:26am 05-08-[address] [facility] ( 96912) valACYclovir valACYclovir (VALTREX) 500 mg Ccf Provide r [facility] (72109) tablet Take 500 mg by mouth twice daily. 0 Active Comment: Take 500 mg by mouth twice d aily. Vitamin B Complex VITAMIN B COMPLEX (B Ccf Provider [facility] (91993) COMPLEX VITAMINS ORAL) Take by mouth. 0 Active VITAMIN B COMPLEX (B COMPLEX VITAMINS ORAL) Ccf Provider [facility] (76151) Take by mouth. 0 Active Comment: Take by mouth. 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 - [facility] disorders (87831) Schizophrenia and other Paranoid schizophrenia Active 020 - [facility] psychotic disorders (42706) Results Result Name Value Range Unit Interpretation Flag Date Location trich vaginalis ampl on 2020-07-21 T vag Amplification Negative for Trichomonas Brynn l 07-21-2020 [facility] vaginalis by [facility] ([id number]) amplification Comment: Performed By: #### TRVAMP ## ## [facility] [address] [place], [place] [id number] Trich vag Amp Source Cervix Normal 0 [facility] ([id number]) Comment: Performed By: #### TRVAMP ## ## [facility] [address], [place] [id number] progress on 2020-07 PROGRESS HNO ID: [id number] Normal 07-21-2020 [facility] Author: Mitali Bernabe) Alexei Mcclain ([id number]) Service: ? Author Type: Yard Cleaner Type: Progress Notes Filed: 07/22/2020 2:07 PM Note Text: Noemi Bach is a 49 year old female who presents for problem v isit for genital warts. HPI: Presented today for feeling something down there. Sin gle, no sexually activity for years. History of removal of genital w arts in the past. But then patient refers to warts being internal on cer vix. States that reports were falseified. Patient with flight of ideas a nd unable to keep her on track of questions asked. States last mammogram in 2018 along with pap smear. History of abnormal menses with cycle rangin g from 10-21 days with 5 days of flow, denies heavy bleeding. States it h as always been this way. Denies any bleeding in between, pain, or large andre ts. States,I was told I couldn't be on control because I smoked. Would you like a mopper present for your visit today? No. Staff Respiratory Therapist provided with Kenia Chin MA PAST MEDICAL HISTORY Diagnosis Date - Depressive disorder, not elsewhere classified PAST SURGICAL HISTORY Procedure Laterality Date - DELIVERY ONLY - PAST SURGICAL HISTORY OF 1997 excision of benign oral tumor - PAST SURGICAL HISTORY OF 10/2003 repair venous aneurysm saphenous vein left ankle, excision g anglion cyst left foot FAMILY HISTORY Problem Relation Age of Onset - Psychiatry Father suicide - Breast Cancer Paternal Grandmother Social History Tobacco Use - Smoking status: Current Every Day Smoker Packs/day: 1.00 Years: 17.00 Pack years: 17.00 Types: Cigarettes - Smokeless tobacco: Never Used Substance Use Topics - Alcohol use: Not Currently - Drug use: No Current Outpatient Medications Medication Sig - risperiDONE (RISPERDAL) 2 mg tablet risperiDONE Risperidon e Active 2 MG DAILY May 08, 2020 4:26am 05-08-2020 [facility] ([id number]) - cholecalciferol, vitamin D3, (VITAMIN D3 ORAL) Take by marielos th. - VITAMIN B COMPLEX (B COMPLEX VITAMINS ORAL) Take by mouth. - ALOE VERA ORAL Take by mouth. - omega-3 fatty acids 1,000 mg cap Take 1,000 mg by mouth. - haloperidol decanoate (HALDOL) 50 mg/mL injection - LATUDA 120 mg - OXcarbazepine (TRILEPTAL) 300 mg tablet - acetaminophen (TYLENOL) 500 mg tablet Take 1 tablet by marielos th every 4 hours as needed for Pain. (Patient not taking: Reported on ) - DIETARY SUPPLEMENT ORAL Take by mouth. baby in [place] - B INFANTIS/B ANI/B JOSE/B BIFID (PROBIOTIC 4X ORAL) Take by mouth. - APPLE CIDER VINEGAR ORAL Take by mouth. - MAGNESIUM ORAL Take by mouth. - QUETIAPINE FUMARATE (SEROQUEL XR ORAL) Take by mouth. - CALCIUM CARBONATE/VITAMIN D3 (VITAMIN D-3 ORAL) Take by mo [facility]. - valACYclovir (VALTREX) 500 mg tablet Take 500 mg by mouth twice daily. - risperiDONE (RISPERDAL) 2 mg tablet Take 2 mg by mouth twi ce daily. - CITALOPRAM HYDROBROMIDE (CITALOPRAM ORAL) Take 1 tablet by mouth once daily. - MULTIVITAMIN TAB Take one(1) tablet daily. No current facility-administered medications for this visit. Allergies As of Date: 07/21/2020 Allergen Noted Reaction ABILIFY [ARIPIPRAZOLE] 09/26/2015 Intolerance PROZAC [FLUOXETINE HCL] 09/26/2015 Intolerance REGLAN [METOCLOPRAMIDE HCL] 03/31/2007 Intolerance Fully Assessed 07/21/2020 REVIEW OF SYSTEMS Abdomen: No bloating, early satiety, indigestion, or increas ed flatulence. No abdominal pain, nausea, vomiting, diarrhea, or constipati on. Bladder: No dysuria, gross hematuria, urinary frequency, uri nary urgency, or incontinence. Breast: No breast lumps, nipple d/c, overlying skin changes, redness or skin retraction. Expanded ROS: N/A Allergies and current medication updated:Yes EXAM: BP 112/70 Ht 5' 5 (1.65m) Wt 192 lb (87.1kg) BM I 31.95 kg/(m2). GENERAL: pleasant, female in mild distress HEENT: Normocephalic, atraumatic, mucus membranes moist and no lesions NECK: Supple, full range of motion, no adenopathy and thyroi d normal DERMATOLOGY: Normal, without lesions, non-icteric and non-hi rsute BREAST: soft, non-tender. no dominant mass, normal nipple-ar eolar complex, no lymphadenopathy, no nipple discharge. Left breast larger than right breast. Patient states it has always been this way. CHEST: Clear to auscultation Normal inspiratory effort Regul ar rate and rhythm No murmurs, clicks, rubs or gallops ABDOMEN: soft, non-tender and no masses PELVIC: external genitalia normal, normal Bartholin's glands , urethra, [place]'s glands, no vulvar lesions, no cervical lesions, good vaginal support, physiologic discharge present, normal appearing per ineal body and perianal region. There are no genital warts present during amisha mendez's visit and when asking patient where there were located she stated on the inside and that records have been changed. BIMANUAL: uterus normal size, shape and consistency, no adne xal masses and non-tender NEURO: alert and oriented x3,exam grossly non-focal EXTREMITIES: normal ASSESSMENT AND PLAN: 1. Encounter for gynecological examination with abnormal fin ding - ICD9: V72.31, ICD10: Z01.411 (primary diagnosis) - Completed pelvic and breast exam - Encouraged monthly BSE - Follow up for annual exam in one year. - Completed all updated screening as patient is a poor histo arianna. No genital warts seen on exam today and reviewed this with angel ent. 2. Special screening examination for human papillomavirus (H PV) - ICD9: V73.81, ICD10: Z11.51 - PAP FLUID CERVICAL SCREENING 3. Pap smear for cervical cancer screening - ICD9: V76.2, IC D10: Z12.4 - Completed pelvic and breast exam - Encouraged monthly BSE - Follow up for annual exam in one year. - PAP FLUID CERVICAL SCREENING 4. Screening for STD (sexually transmitted disease) - ICD9: V74.5, ICD10: Z11.3 - GC/CHLAMYDIA DNA DET - BACT/ANGEL VAG GRAM STAIN - T VAGINALIS AMPLIFICATION 5. Encounter for screening mammogram for malignant neoplasm of breast - ICD9: V76.12, ICD10: Z12.31 - Completed pelvic and breast exam - Encouraged monthly BSE - Follow up for annual exam in one year. - LOPEZ SCREENING 6. Paranoid schizophrenia (HCC) - ICD9: 295.30, ICD10: F20.0 -Very difficult to complete questioning as patient is a poor historian and many conspiracy theories about health management and that pe ople are changing her records. 7. Abnormal uterine bleeding (AUB) - ICD9: 626.9, ICD10: N93 .9 -I am unclear of patients menstrual history and work up. Pel ame US completed today for AUB and frequent menstruation. Mitali Henry APRN.CNM hpv w/genotype on HPV HighRisk Negative for HPV DNA high risk types: Normal 07-21-2020 [facility] Other 31,33,35,39,45,51,52,56,58,59,66,68 by Clinic PCR. [facility] ([id number]) Comment: Result Comment: This test wa s developed and its performance characteristics determined by [facility]'s Nishant Puente [facility] Ernest (RUSTPLMI). It has not been cleared or a pproved by the FDA. [facility] is regulated under CLIA as qualified to perform high-complexity testing. This test is used for clinical purposes. It should not be regarded as inv estigational or for research . Performed By: #### HPVHRR ## ## [facility] [address] [place], [place] [address] HPV HighRisk Type 16 Negative for HPV DNA Normal 07-21-2020 [facility] high risk type 16 by [facility] ([id number]) PCR. Comment: Performed By: #### HPVHRR ## ## [place] [id number] [place] [address] HPV HighRisk Type 18 Negative for HPV DNA Normal 07-21-2020 [facility] high risk type 18 by [facility] ([id number]) PCR. Comment: Performed By: #### HPVHRR ## ## [place] [phone] gc/chlamydia amplif on 2020-07-21 Chlamydia Amplif Negative for Chlamydia Normal 07-21-2020 [facility] trachomatis by [facility] ([id number]) amplification. Comment: Performed By: #### GCCT #### [place] [phone] GC Amplification Negative for Neisseria Normal 07-21-2020 [facility] gonorrhoeae by [facility] ([id number]) amplification. Comment: Performed By: #### GCCT #### [place] [phone] GC/Chlam Amp Source Cervix Normal 07-21-2020 [facility] ([id number]) Comment: Performed By: #### GCCT #### [place] [address] cytology on 2020-07 CYTOLOGY Normal 07-21-2020 [facility] ADDITIONAL PROCEDURES PRESENT Clinic [facility] ([id number]) Specimen originated from [facility] Specimen #: [id number] Submitting Physician: MITALI HENRY, CNM SPECIMEN SUBMITTED A: CERVICAL, SCREENING, FLUID FINAL DIAGNOSIS A. CERVICAL, SCREENING, FLUID Satisfactory for interpretation. Negative for intraepithelial lesion or malignancy. This specimen has been analyzed by the ThinPrep Imaging Syst em, an automated imaging and review system, which assists the labor atory in evaluating cells on ThinPrep Pap tests. Following automated imaging, selected li from every slide are reviewed by a cytotechn ologist. ANDREA Hernandez(ASCP) (Electronic Signature) ADDITIONAL PROCEDURE(S) HUMAN PAPILLOMA VIRUS Date Ordered: 07/22/2020 Date Reported: 07/25/2020 Procedure Results and Interpretation Negative for HPV DNA high risk type 16 by PCR. Negative for HPV DNA high risk type 18 by PCR. Negative for HPV DNA high risk types: 31,33,35,39,45,51,52,5 6,58,59,66,68 by PCR. This test was developed and its performance characteristics determined by [facility]'s Nishant Kwame [facility] Pathology and Labor[facility] y Medicine Ernest ([facility]). It has not been cleared or approved by the FDA. -[facility] is r egulated under CLIA as qualified to perform high-complexity testing. This test is used for clinical purposes. It should not be regarded as investigatio nal or for research. 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 IA Number: [id number] The Pap Smear is a screening test for cervical cancer. False negative results occur with all screening tests, emphasizing the need for rescreening at recommended intervals, and clinical correlati on. cnov on 2020-07-21 CNOV Office Visit (OBGYWM) Normal 07-21-20 [facility] NOEMI BACH ([id number]) 1970 F [facility] Date Time Provider Department ([id number]) 07/21/20 10:00 AM MITALI HENRY ([facility]) OBGYWM During your visit today, we recorded the following informati on about you: Blood pressure Weight Height Last Period 112 87.1 kg 1.651 m 07/08/20 Mitali Henry APRN.PERNELL 07/22/2020 2:07 PM Signed Noemi Mikala is a 49 year old female who presents for pro ble visit for genital warts. HPI: Presented today for feeling something down there . Single, no sexually activity for years. History of removal of genita l warts in the past. But then patient refers to warts being internal on cervix. States leora t reports were falseified. Patient with flight of ideas and unable to servando p her on track of questions asked. States last mammogram in 2018 along with pap smear. History of abnormal menses with cycle ranging from 10-21 days with 5 days of flow, denies heavy bleeding. States it has always been this way. Denies a ny bleeding in between, pain, or large clots. States,I was told I couldn't be on control because I smoked. Would you like a mopper p resent for your visit today? No. Staff Respiratory Therapist provided with Kenia Chin MA PAST MEDICAL HISTORY Diagnosis Date - Depressive disorder, not elsewhere classified PAST SURGICAL HISTORY Procedure Laterality Date - DELIVERY ONLY - PAST SURGICAL HISTORY OF 1997 excision of benign oral tumor - PAST SURGICAL HISTORY OF 10/2003 repair venous aneurysm saphenous vein left ankle , excision ganglion cyst left foot FAMILY HISTORY Problem Relation Age of Onset - Psychiatry Father suicide - Breast Cancer Paternal Grandmother Social History Tobacco Use - Smoking status: Current Every Day Smoker Packs/day: 1.00 Years: 17.00 Pack years: 17.00 Types: Cigarettes - Smokeless tobacco: Never Used Substance Use Topics - Alcohol use: Not Currently - Drug use: No Current Outpatient Medications Medication Sig - risperiDONE (RISPERDAL) 2 mg tablet risperiDONE Risperidone Active 2 MG DAILY May 08, 2020 4:26am 05-08-[address] [facility] ([id number]) - cholecalciferol, vitamin D3, (VITAMIN D3 ORAL) [facility] - VITAMIN B COMPLEX (B COMPLEX VITAMINS ORAL) Take by mouth. - ALOE VERA ORAL Take by mouth. - omega-3 fatty acids 1,000 mg cap Take 1,000 mg by mouth. - haloperidol decanoate (HALDOL) 50 mg/mL injection - LATUDA 120 mg - OXcarbazepine (TRILEPTAL) 300 mg tablet - acetaminophen (TYLENOL) 50 0 mg tablet Take 1 tablet by mouth every 4 hours as needed for Pain. (Patient not taking: Reported on 03/09/2020 ) - DIETARY SUPPLEMENT ORAL Take by mouth. baby [place] - B INFANTIS/B ANI/B JOSE/B BIFID (PROBIOTIC 4X ORAL) Take by mouth. - APPLE CIDER VINEGAR ORAL Take by mouth. - MAGNESIUM ORAL Take by mouth. - QUETIAPINE FUMARATE (SEROQUEL XR ORAL) Take by mouth. - CALCIUM CARBONATE/VITAMIN D3 (VITAMIN D-3 ORAL) Take by [facility]. - valACYclovir (VALTREX) 500 mg tablet Take 500 mg by mouth twice daily. - risperiDONE (RISPERDAL) 2 mg tablet Take 2 mg by mouth twi ce daily. - CITALOPRAM HYDROBROMIDE (CITALOPRAM OR AL) Take 1 tablet by mouth once daily. - MULTIVITAMIN TAB Take one(1) tablet daily. No current facility-administered medications for this visit. Allergies As of Date: 07/21/2020 Allergen Noted Reaction ABILIFY [ARIPIPRAZOLE] 09/26/2015 Intolerance PROZAC [FLUOXETINE HCL] 09/26/2015 Intolerance REGLAN [METOCLOPRAMIDE HCL] 03/31/2007 Intolerance Fully Assessed 07/21/2020 REVIEW OF SYSTEMS Abdomen: No bloating, early satiety, indigestion , or increased flatulence. No abdominal pain, nausea, vomiting, diarrhea, or constipation. Bladder: No dysuria, gross hematuria, urinary frequenc y, urinary urgency, or incontinence. Breast: No breast lumps, nipple d/c, overlying skin ch anges, redness or skin retraction. Expanded ROS: N/A Allergies and current medication updated:Yes EXAM: BP 112/70 Ht 5' 5 (1.65m) Wt 192 lb (87.1kg ) BMI 31.95 kg/(m2). GENERAL: pleasant, female in mild distress HEENT: Normocephalic, atraumatic, mucus membranes moist and no lesions NECK: Supple, full range of motion, no adenopathy and thyroi d normal DERMATOLOGY: Normal, without lesions, non-icteric and non-hi rsute BREAST: soft, non-tender. no dominant mass, norm al nipple-areolar complex, no lymphadenopathy, no nipple discharge. Left breast larger t gramajo right breast. Patient states it has always been this way. CHEST: Clear to auscultation Normal insp iratory effort Regular rate and rhythm No murmurs, clicks, rubs or gallops ABDOMEN: soft, non-tender and no masses PELVIC: external genitalia normal, brynn l Bartholin's glands, urethra, [place]'s glands, no vulvar lesions, no cervical lesions, good vaginal support, physiologic discharge present, normal appearing perineal bod y and perianal region. There are no genital warts present during today's visit and when asking patient where there were loc ated she stated on the inside and that records have been changed. BIMANUAL: uterus normal size, shape and consistency, no adne xal masses and non-tender NEURO: alert and oriented x3,exam grossly non-focal EXTREMITIES: normal ASSESSMENT AND PLAN: 1. Encounter for gynecological examination with abnormal fin ding - ICD9: V72.31, ICD10: Z01.411 (primary diagnosis) - Completed pelvic and breast exam - Encouraged monthly BSE - Follow up for annual exam in one year. - Completed all updated screening as patient is a poor historian. No genital warts seen on exam today and reviewed this with patient. 2. Special screening examina tion for human papillomavirus (HPV) - ICD9: V73.81, ICD10: Z11.51 - PAP FLUID CERVICAL SCREENING 3. Pap smear for cervical cancer screening - ICD9: V76.2, IC D10: Z12.4 - Completed pelvic and breast exam - Encouraged monthly BSE - Follow up for annual exam in one year. - PAP FLUID CERVICAL SCREENING 4. Screening for STD (sexual ly transmitted disease) - ICD9: V74.5, ICD10: Z11.3 - GC/CHLAMYDIA DNA DET - BACT/ANGEL VAG GRAM STAIN - T VAGINALIS AMPLIFICATION 5. Encounter for screening mammogram for maligna nt neoplasm of breast - ICD9: V76.12, ICD10: Z12.31 - Completed pelvic and breast exam - Encouraged monthly BSE - Follow up for annual exam in one year. - LOPEZ SCREENING 6. Paranoid schizophrenia (HCC) - ICD9: 295.30, ICD10: F20.0 -Very difficult to complete questioning as patient is a poor historian and many conspiracy theories about health management and that p eople are changing her records. 7. Abnormal uterine bleeding (AUB) - ICD9: 626.9, ICD10: N93 .9 -I am unclear of patients menstrual history and work u p. Pelvic US completed today for AUB and frequent menstruation. Mitali Henry APRN.PERNELL Referring Provider: SELF [[id number]] Allergies As of Date: 07/21/2020 Noted Allergy Reaction ABILIFY (ARIPIPRAZOLE) 09/26/2015 5 - Intolerance Comments: Cold and stiff PROZAC (FLUOXETINE HCL) 09/26/2015 5 - Intolerance Comments: Makes her mean REGLAN (METOCLOPRAMIDE HCL) 03/31/2007 5 - Intolerance Comments: Think crazy Date Reviewed: 07/21/2020 Reviewed by: Kenia Chin Ma - Fully Assessed Reason for Visit: New Patient [172] Cmt: Condyloma Check Primary Visit Diagnosis:Encounter for gynecologi jai examination with abnormal finding [Z01.411] Other Visit Diagnoses:Special screening examination fo r human papillomavirus (HPV) [Z11.51] Pap smear for cervical cancer screening [Z12.4] Screening for STD (sexually transmitted disease) [Z11.3] Encounter for screening mammogram for malignant neoplasm of breast [Z12.31] Paranoid schizophrenia (HCC) [F20.0] Abnormal uterine bleeding (AUB) [N93.9] Order(s):PAP FLUID CERVICAL SCREENING [[id number]] Order #: [id number]. #:[id number] GC/CHLAMYDIA DNA DET [SQGCCAMP] Order #: [id number] BACT/ANGEL VAG GRAM STAIN [SQBVCNSM] Order #: [id number] ec. #:[id number] VAGINALIS AMPLIFICATION [SQTRVAMP] Order #: [id number] LOPEZ SCREENING [[id number]] Order #: [id number] FUTURE Prescriptions as of 07/21/2020 Sig: RISPERIDONE 2 MG TABLET risperiDONE Risperidone Activ* VITAMIN D3 ORAL Take by mouth. B COMPLEX VITAMINS ORAL Take by mouth. ALOE VERA ORAL Take by mouth. OMEGA-3 FATTY ACIDS 1,000 MG * Take 1,000 mg by mouth. HALOPERIDOL DECANOATE 50 MG/M* LATUDA 120 MG TABLET OXCARBAZEPINE 300 MG TABLET ACETAMINOPHEN 500 MG TABLET Take 1 tablet by mouth every * Patient not taking: Reported on 03/09/2020 DIETARY SUPPLEMENT ORAL Take by mouth. baby in me PROBIOTIC 4X ORAL Take by mouth. APPLE CIDER VINEGAR ORAL Take by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 media will disappear, but the fluid may remain. Trapped fluid causes temporary and m ild hearing loss. This is called otitis media with effusion and may last for up to 3 months. This often indicates a dysfunction of the Eustachian tube. How is otitis media diagnosed? When an ear infection is suspected, the health c are professional will examine the ear using an instrument called an otoscope. A healthy ea rdrum will be pinkish hines in color and tr anslucent. If infection is present, the eardrum may be inflamed, swollen, or red . The doctor may also check the fluid in the middle ear using a pneumatic otoscope, which blows a small amount o f air at the eardrum. This should cause t he eardrum to move back and forth. The eardrum will not move as readily if fluid is present inside the ear. Another useful diagnostic tool is tympan ometry, a test that uses sound and air pressure to check for fluid in the middle ear. It cannot esdras t hearing. If needed, the doctor will order a hearing test (performed by an warehouse delivery driver) for a patient who has persistent ear infecti ons to help determine the presence and extent of hearing loss. How is otitis media treated? Middle ear infection is usually treatable, and p ermanent damage to the ear or to the hearing is very rare. Treatment methods include the f ollowing: Antibiotics Antibiotics, prescribed by your physician, will kill the krissy teria that are causing the ear infection. Do not forget to take or gi ve it in regular doses until the bottle is empty, even if the pain and fever are gone. Finishing the medicine will keep the ear infection from flaring up again. If your child goes to school or a supervisor paper coating and is on a three times a day medication, arrange for someone to give the afternoon dose. Store liquid antibiotics in the refrigerator and use a measuring spoon to be sure that you give the right amount. Call the doctor if fever and pain are not gone within 2 days of starting the antibiotics. Antibiotics may cause nausea, diarrhea, rashes, or yeast i nfections and may also interact with other medications. Rarely, allergic ariel ctions can occur. There is the potential that bacteria will, over time, develop a resistance to frequently used antibiotics. Be sure to tell your doctor about your medical history and a ny caoe-yra-wmqowif and prescription medications that you are currently taking. Pain relief Acetaminophen or ibuprofen can help relieve eara bennie or fever over 102 degrees Fahrenheit (39 degrees Celsius) until the antibiotic takes e ffect. These medications usually control the pain within 1 to 2 hours. Earaches tend to hurt more at bedtime. Using a warm compress o n the outside of the ear may also help relieve pain. This is not recommended for infants. Restrictions The ears do not need to be c overed when going outside. Swimming is okay as long as there is no perforation (tear) in the eardrum or drainage from the ear. Air travel or a trip to the mountains is saf e, although temporary pain is possible during takeoff and landing. Swallowing fluids, t aking a decongestant, chewing on gum during descent, or having a child suck on a pacifier will help relieve discomfort during air travel . Children can return to school or day care as soon as the fever is gone. Ear infections are not contagious. Myringotomy If fluid remains in the ear for more than 3 months, your d octor may want to insert small metal or plastic tubes through the eardru m to equalize pressure between the middle and outer ear. This outpatient procedure is usually performed on children and can be done un theresa general anesthesia. The tubes will remain in from 6 to 12 month s and normally fall out on their own. The outer ear will need to be kept dry and free of water until the holes h ave closed completely. Call your child?s physician immediately if: Your child develops a stiff neck. You child acts very lethargic, responds poorly, or is uncons olable. Call your child?s physician during office hours if: The fever or pain is not gone after your child has taken the antibiotic for 48 hours. You have any questions or concerns. Preventing middle ear infections in adults and children Avoid contact with second-hand tobacco smoke, also kno wn as passive smoking. Passive smoking increases the frequency and severity of infections. Be sure no one smokes in your home or at a day care. No one should smoke in the house or car, especially when children are present. Avoid bottle propping. If yo u bottle-feed, hold your baby at a 45-degree angle. Feeding in the horizontal position can cause for ollie and other fluids to flow back into the Eustachian tubes. Allowing an infant to hold h is or her own bottle also can cause milk t o drain into the middle ear. Weaning your baby from a bottle between 9 and 12 months of age will help stop this problem. Watch for mouth breathing or snoring. Constant snoring or breathing through the mouth may be caused by large adenoids. T hese may contribute to ear infections. An exam by an mobile application tester, and even surgery to remove t he adenoids (adenoidectomy), may be necessary. ? Copyright [id number] [facility]. All r ights reserved This information is provided by the [facility] and i s not intended to replace the medical advice of your doctor or health care pro vider. Please consult your health care provider for advice about a specifi c medical condition. For additional [facility] information, please contact the Health Information Center at the [facility] [phone] or toll-free extension [phone] or visit [email or web address] This document was last reviewed on: 03/16 index#3053 Mitali Callejas APRN.[facility] Department of Pediatrics [facility] [place] Referring Provider: SELF [200] Allergies As of Date: 03/09/2020 Noted Allergy Reaction ABILIFY (ARIPIPRAZOLE) 09/26/2015 5 - Intolerance Comments: Cold and stiff PROZAC (FLUOXETINE HCL) 09/26/2015 5 - Intolerance Comments: Makes her mean REGLAN (METOCLOPRAMIDE HCL) 03/31/2007 5 - Intolerance Comments: Think crazy Date Reviewed: 03/09/2020 Reviewed by: Jenifer Sanchez Ma - Fully Assessed Reason for Visit: Ear Pain [817] Cmt: left ear pain x 2 days Primary Visit Diagnosis:Acute otitis media, left [H66.92] Other Visit Diagnosis:Left ear pain [H92.02] Order(s):amoxicillin-clavulanic acid (AUGMENTIN) 875-1 25 mg per tabletTake 1 tablet by mouth twice daily for 10 days.Disp: 20 tabletRfl: 0 fluconazole (DIFLUCAN) 200 mg tabletTake 1 tablet by mouth o nce daily for 1 day.Disp: 1 tabletRfl: 0 Prescriptions as of 03/09/2020 Sig: OMEGA-3 FATTY ACIDS 1,000 MG * Take 1,000 mg by mouth. LATUDA 120 MG TABLET B COMPLEX VITAMINS ORAL Take by mouth. APPLE CIDER VINEGAR ORAL Take by mouth. SEROQUEL XR ORAL Take by mouth. AMOXICILLIN 875 MG-POTASSIUM * Take 1 tablet by mouth twice * FLUCONAZOLE 200 MG TABLET Take 1 tablet by mouth once d* HALOPERIDOL DECANOATE 50 MG/M* OXCARBAZEPINE 300 MG TABLET ACETAMINOPHEN 500 MG TABLET Take 1 tablet by mouth every * Patient not taking: Reported on 03/09/2020 DIETARY SUPPLEMENT ORAL Take by mouth. baby in [place] PROBIOTIC 4X ORAL Take by mouth. ALOE VERA ORAL Take by mouth. MAGNESIUM ORAL Take by mouth. VITAMIN D-3 ORAL Take by mouth. VALACYCLOVIR 500 MG TABLET Take 500 mg by mouth twice da* RISPERIDONE 2 MG TABLET Take 2 mg by mouth twice sana* CITALOPRAM ORAL Take 1 tablet by mouth once d* MULTIVITAMIN TABLET Take one(1) tablet daily. Medication notes this encounter SEROQUEL XR ORAL >> Jenifer Sanchez Ma 03/09/2020 12:52 PM >> JENIFER SANCHEZ MA March 09, 2020 12:52 PM Problem List As Of Date 03/09/2020 Noted Resolved DEPRESSIVE DISORDER NEC [F32.9] 06/21/2006 NEUROMA SURGICAL (NONNEOPLASTIC) [G58.9] 12/28/2006 Other instructions from your clinician: EAR INFECTION - OTITIS MEDIA What is otitis media? Otitis media is a bacterial or viral infection of the middle ear (the space behind the eardrum). Middle ear infections often occur as a complication of a cold, allergies, nose and throat infection , or enlarged adenoids (glands at the top of the throat). Middle ear infec tions usually clear up without complication or long-term effects. The ear structure and function There are three main parts of the ear: outer, middle, and in ner. The outer ear is the orifice outside of the body. The middle ear house s delicate bones that aid in hearing, and the inner ear holds organs th at control hearing and balance. The Eustachian tube regulates air press ure within the middle ear, connecting it to the back of the nose and throat . What are the symptoms of otitis media? Ear infections can be painful. Trapped fluid puts pressure o n the eardrum, causing it to bulge. Other symptoms include: 1)Ear pain: This symptom is obvious in adults, but for child andre who cannot yet speak, you should watch for other signs, like rubbing or tugging on the ear lobes or excessive crying. 2) Loss of appetite: This may be most apparent in young chil dren, especially during bottle feedings. Pressure changes in the m iddle ear as the child swallows, causing more pain and less desire to eat . 3) Irritability: Any kind of persistent pain may cause irrit ability in children and adults. 4) Poor sleep: Pain may be more persistent when lying down a s fluid is shifting. 5) Fever: Ear infections can cause temperatures up to 104? F . 6) Drainage from the ear: Yellow, brown, or white fluid that isn?t earwax may seep from the ear . This indicates the rupture of the ea rdrum. 7) Difficulty hearing: Bones of the middle ear connect to th e nerves that transmit electrical signals as sound to the brain. Fluid beh ind the eardrums slows down movement of these electrical signals thr ough the inner ear bones. Who is most likely to get middle ear infections? Middle ear infection is more common in children and is the m ost prevalent childhood illness other than a cold. Ear infections occur mo st commonly between age 3 months and 3 years and are common until age 8. One-fourth of all children will have repeated ear infections, and five to ten percent will develop a hole on the eardrum from fluid pressure. This hole usually heals in one week. For many reasons, children usually get more ear infections t gramajo adults. First, they usually get more colds and respiratory infection s than adults. Second, the Eustachian tube is shorter and has less of a slo pe in children than in adults. Other contributing factors for middle ear infections include the followin) Age: Infants and young children are more susceptible to e ar infections. 2) Sex: Boys tend to get ear infections more often than girl s. 3) Heredity: The tendency to get ear infections can be hered itary (runs in the family). 4) Colds: Having colds often increases the chances of gettin g an ear infection. 5) Allergies: Allergies cause inflammation of the nasal pass ages and upper respiratory tract, which can cause blockage of the Eustachia n tube or enlargement of the adenoids. 6) Chronic illnesses: People with chronic illnesses are more likely to develop ear infections, especially patients with immune defi ciency and chronic respiratory disease, such as cystic fibrosis and ast hma. What are the causes of middle ear infection? Acute otitis media. Allergies, colds, respiratory infections , and inflamed or enlarged adenoids can block the bottom of the Eustachian tube, allowing normally produced fluids to build up in the middle ear. Trap ped fluid can become infected by a virus or bacteria, causing pain and swe lling of the eardrum. Otitis media with effusion. Symptoms of acute otitis media w ill disappear, but the fluid may remain. Trapped fluid causes temporary and mild hearing loss. This is called otitis media with effusion and may last for up to 3 months. This often indicates a dysfunction of the Eustachian tube. How is otitis media diagnosed? When an ear infection is suspected, the health care [facility] will examine the ear using an instrument called an otoscope. A he althy eardrum will be pinkish hines in color and translucent. If infection is present, the eardrum may be inflamed, swollen, or red. The doctor may also check the fluid in the middle ear using a pneumatic otoscope, whic h blows a small amount of air at the eardrum. This should cause the ea rdrum to move back and forth. The eardrum will not move as readily if flui d is present inside the ear. Another useful diagnostic tool is tympanometry, a test that uses sound and air pressure to check for fluid in the middle ear. It cannot test hearing. If needed, the doctor will order a hearing test (performed b y an warehouse delivery driver) for a patient who has persistent ear infections to help determine the presence and extent of hearing loss. How is otitis media treated? Middle ear infection is usually treatable, and permanent dam age to the ear or to the hearing is very rare. Treatment methods include th e following: Antibiotics Antibiotics, prescribed by your physician, will kill the krissy teria that are causing the ear infection. Do not forget to take or give it in regular doses until the bottle is empty, even if the pain and fever are gone. Finishing the medicine will keep the ear infection from flar ing up again. If your child goes to school or a supervisor paper coating and is on a th ree times a day medication, arrange for someone to give the afternoon do se. Store liquid antibiotics in the refrigerator and use a measu ring spoon to be sure that you give the right amount. Call the doctor if fever and pain are not gone within 2 days of starting the antibiotics. Antibiotics may cause nausea, diarrhea, rashes, or yeast inf ections and may also interact with other medications. Rarely, allergic r eactions can occur. There is the potential that bacteria will, over time, develop a resistance to frequently used antibiotics. Be sure to tell your doctor about your medical history and a ny kbeu-dju-yhxshss and prescription medications that you are c urrently taking. Pain relief Acetaminophen or ibuprofen can help relieve earache or fever over 102 degrees Fahrenheit (39 degrees Celsius) until the antibiotic takes effect. These medications usually control the pain within 1 to 2 beto rs. Earaches tend to hurt more at bedtime. Using a warm compress on the o utside of the ear may also help relieve pain. This is not recommended for infants. Restrictions The ears do not need to be covered when going outside. Swimm ing is okay as long as there is no perforation (tear) in the eardrum or maryann inage from the ear. Air travel or a trip to the mountains is safe, although temporary pain is possible during takeoff and landing. Swallowing flui ds, taking a decongestant, chewing on gum during descent, or having a chi ld suck on a pacifier will help relieve discomfort during air travel. Chi ldren can return to school or day care as soon as the fever is gone. E ar infections are not contagious. Myringotomy If fluid remains in the ear for more than 3 months, your doc tor may want to insert small metal or plastic tubes through the eardrum t o equalize pressure between the middle and outer ear. This outpatient p rocedure is usually performed on children and can be done under general anesthesia. The tubes will remain in from 6 to 12 months and normally fa ll out on their own. The outer ear will need to be kept dry and free o f water until the holes have closed completely. Call your child?s physician immediately if: Your child develops a stiff neck. You child acts very lethargic, responds poorly, or is uncons olable. Call your child?s physician during office hours if: The fever or pain is not gone after your child has taken the antibiotic for 48 hours. You have any questions or concerns. Preventing middle ear infections in adults and children Avoid contact with second-hand tobacco smoke, also known as passive smoking. Passive smoking increases the frequency and severity of infe ctions. Be sure no one smokes in your home or at a day care. No one [place] ul[place] smoke in the house or car, especially when children are present. Avoid bottle propping. If you bottle-feed, hold your baby at a 45-degree angle. Feeding in the horizontal position can cause formula and other fluids to flow back into the Eustachian tubes. Allowing an i nfant to hold his or her own bottle also can cause milk to drain into the middle ear. Weaning your baby from a bottle between 9 and 12 months of a ge will help stop this problem. Watch for mouth breathing or snoring. Constant snoring or br eathing through the mouth may be caused by large adenoids. These may contribute to ear infections. An exam by an mobile application tester, and even yenni antwon to remove the adenoids (adenoidectomy), may be necessary. ? Copyright [id number] [facility]. All r ights reserved This information is provided by the [facility] and is not intended to replace the medical advice of your doctor or health care provider. Please consult your health care provider for advice about a specific medical condition. For additional written health information , please contact the Health Information Center at the [facility] or toll-free extension [phone] or visi t [email or web address] This document was erick st reviewed on: 03/16 index#2401 Mitali Callejas APRN.[facility] Department of Pediatrics [facility] Prescriptions ordered this encounter Disp Refills Start End AMOXICILLIN 875 MG-POTASSIUM CLAVULA* 20 t* 0 03/09/202007/2020 Route: ORAL Sig: Take 1 tablet by mouth twice daily for 10 days. FLUCONAZOLE 200 MG TABLET 1 ta* 0 03/09/2020 03/10/2020 Route: ORAL Sig: Take 1 tablet by mouth once daily for 1 day. Encounter Status:Closed by MITALI CALLEJAS CNP on 03/09/20 xr chest 2v frontal/lat on 2018-09-14 Protein mass * * *Final Report* * *DATE OF EXAM: John mesa 09-14-2018 Yarsani conc Sep 14 2018 2:29AM [id number] - [facility] CHEST 2V FRONTAL/LAT / [id number] REASON: Cough, new onset * * * * Physician Interpretation * * * * CHEST RADIOGRAPH: PA and lateral views of the chestExam Date/Time: 09/14/2018 2:29 AMIndication: Cough, new onsetComparison: No relevant prior study available for comparison.RESULTS:Lines, Tubes, and Devices: NoneLungs and Pleura: The lungs are clear. No pleural effusion or pneumothorax.Cardiomediastinal silhouette: The mediastinal and cardiac silhouette are normal in size and contour.Other: The bones of the chest are unremarkable.IMPRESSION:No radiographic evidence of acute cardiopulmonary abnormality.Mobile Ui/Ux Designer: PSCB Transcribe Date/Time: Sep 14 2018 2:30ADictated by : UNRULY NUNES MDThis examination was interpreted and the report reviewed and electronically signed by: UNRULY NUNES MD on Sep 14 2018 2:30AM [id number] ekg (ak,av,eu,fv,hl,nazario,mm,sp) on 2018-09-14 Protein mass NAME : NGA BACHID : Normal 09-14 [facility] [id number] : [birth year] [address] [place] [address] ([id number]) Gender : FemaleRace : CaucasianORD : [id number] Procedure Date : Sep 14 2018 02:57:22Edit Date : Sep 14 2018 09:54:44 Diagnosis:SINUS RHYTHMNormal [id number] by DO ROMAN NICHOLAS ([id number]), industrial editor MINGO CUMMINS ([id number]) on 09/14/2018 9:54:37 AM Ventricular Rate : 73 BPMAtrial Rate : 72 BPMP-R Interval : 164 msQRS Duration : 82 msQ-T Interval : 396 msQTC Calculation(Bezet) : 436 msP Lupton : 77 degreesR Lupton : 81 degreesT Lupton : 50 degrees Test Reason : Pre OP Location : 502 : LUED LUED1 Overread By : DO ROMAN NICHOLASEdited By : MINGO CUMMINSReferred By : ,Acquired by : CAT, ed prov note on 201 05-21-06 Protein mass HNO ID: [id number]: Sudhakar Purcell rmal 09-14-2018 Yarsanidanette Roman, DOService: Emergency Hospital MedicineAuthor Type: ([id number]) PhysicianType: ED Provider NotesFiled: 09/14/2018 3:29 AMNote Text:ED Provider NotePatient Name: Noemi FerreiraRN: [id number] DATE: 09/14/18HistoryPatient presents with:CoughPatient is a 47-year-old female presenting for cough. Patient states thatshe's been having a cough for the past 2 weeks. States that in themorning and seems to be the most productive with some green sputum but hasa progressive headache clears. Does state that she gets some chest painwith the coughing. States that she feels congested and that theresomething inside of her chest. Does state that she intermittentlywheezes. Has used an inhaler which would feel better. Denies anyshortness of breath. No reported fevers or chills. Does state that she'shad some nasal congestion. Denies any nausea or vomiting. States she'shad a similar episode in the past and had to be placed on a Z-Hilario. Doesstate that she smokes a pack a day.History provided by: PatientLanguage customer operations intern used: NoPAST MEDICAL HISTORYDiagnosis Date- Depressive disorder, not elsewhere classifiedPAST SURGICAL HISTORYProcedure Laterality Date- DELIVERY ONLY- PAST SURGICAL HISTORY OF 1997 excision of benign oral tumor- PAST SURGICAL HISTORY OF 10/2003 repair venous aneurysm saphenous vein left ankle, excision ganglion cystleft footFAMILY HISTORYProblem Relation Age of Onset- Psychiatry Father suicide- Breast Cancer Paternal GrandmotherSocial HistorySocial History Main Topics- Smoking status: Current Every Day Smoker Packs/day: 1.00 Years: 17.00 Types: Cigarettes- Smokeless tobacco: Never Used- Alcohol use No Comment: occasional- Drug use: No- Sexual activity: NoALLERGIESAllergen Reactions- Abilify [Aripiprazo* Intolerance Cold and stiff- Prozac [Fluoxetine * Intolerance Makes her mean- Reglan [Metoclopram* Intolerance Think crazyReview of SystemsConstitutional: Negative for fever.HENT: Positive for congestion. Negative for sore throat.Respiratory: Positive for cough and wheezing. Negative for shortness ofbreath.Cardiovascular: Positive for chest pain (With cough).Gastrointestinal: Negative for abdominal pain, nausea and vomiting.Musculoskeletal: Negative for back pain.Neurological: Negative for light-headedness and headaches.All other systems reviewed and are negative.Physical ExamBP 124/90 Pulse 89 Temp (Src) 98 (Oral) Resp 16 Ht 5' 5 (1.65m) Wt 176 lb (79.8kg) SpO2 97% BMI 29.29 kg/(m2).Physical ExamConstitutional: She is oriented to person, place, and time. She appearswell-developed. No distress.HENT:Head: Atraumatic.Right Ear: External ear normal.Left Ear: External ear normal.Nose: Nose normal.Mouth/Throat: Oropharynx is clear and moist. No oropharyngeal exudate.Eyes: Pupils are equal, round, and reactive to light. Conjunctivae and EOMare normal. Right eye exhibits no discharge. Left eye exhibits nodischarge.Neck: Neck supple. No JVD present.Cardiovascular: Normal rate and regular rhythm.Pulmonary/Chest: Effort normal and breath sounds normal. No stridor. Norespiratory distress. She has no wheezes. She exhibits no tenderness.Abdominal: She exhibits no distension.Musculoskeletal: She exhibits no deformity.Neurological: She is alert and oriented to person, place, and time.Skin: Skin is warm. No pallor.Psychiatric: Her behavior is normal.Nursing note and vitals reviewed.Diagnostic TestingED Labs Ordered and Reviewed - No data to displayXR CHEST 2V FRONTAL/LAT Final Result IMPRESSION: No radiographic evidence of acute cardiopulmonary abnormality. Mobile Ui/Ux Designer: CECILIO Transcribe Date/Time: Sep 14 2018 2:30A Dictated by : UNRULY NUNES MD This examination was interpreted and the report reviewed and electronically signed by: UNRULY NUNES MD on Sep 14 2018 2:30AM ESTEKG INTERPRETATION:RHYTHM: Normal sinus rhythm at 73 beats per minuteAXIS: Normal axisINTERVALS: Normal AL intervalQRS COMPLEX: NormalST SEGMENT: Normal ST-T segmentsQT INTERVAL: NormalCOMPARED WITH PRIOR: None availableInterpretation by ED physician.ProceduresED Course / Clinical ImpressionClinical Impressions as of Sep 14 0325BronchitisMDM / Disposition / PlanChest x-ray showed no signs of a pneumonia, congestive heart failurepneumothorax. EKG showed a normal sinus rhythm. Symptoms seem to beconsistent with bronchitis. Since her symptoms have been going on formore than 2 weeks course of antibiotics and steroids written. Theycomplain of some chest discomfort with cough. Pain does not seem to beconsistent with any ACS, PE or dissection. Breathing comfortably in theroom in no signs of any respiratory distress. Doesn't appear to beseptic. At this time can try outpatient treatment. First dose of theazithromycin and prednisone given hereDispositionThe patient was discharged and given RX.Counseled patient regarding radiology results and suspected diagnosis. Aswell as the need for follow-up. Discharged home with verbal and writteninstructions. They were instructed to return as needed for persistent orworsening symptoms or any new concerns.Medication(s) prescribed include Azithromycin, prednisone, Tylenol,albuterol, Tessalon Perles.Condition at disposition is stable.SIGNATURE: Aliya Guzman, DO09/14/18 0329 ed note on ED NOTE HNO ID: [id number]: Normal [facility] Westley Norton Rn: ([id number]) (none)Author Type: Registered NurseType: ED NotesFiled: 09/14/2018 3:39 AMNote Text: Pt received written and verbal discharge instructions. All questionsanswered. Pt educated on medications and dosages. Instructed pt to followup with PCP or follow-up DR. No acute distress noted. Instructed to comeback to Emergency Room if symptoms worsen. Pt verbalized understanding.All belongings with patient. Pt ambulated with steady gait out of ED. ED NOTE HNO ID: [id number]: Normal [facility] Viri Hand) Nikole, RNService: ([id number]) (none)Author Type: Registered NurseType: ED NotesFiled: 09/14/2018 3:38 AMNote Text: Pt is resting in room, no complaints at this time. Toilet and comfortmeasures offered. No distress noted. Call light within reach, safetymaintained. ED NOTE HNO ID: [id number]: Sandhya Ray 09-14-2018 [facility] (Medic) Ramy: (none)Author ([id number]) Type: Informatica and TechnicianType: ED NotesFiled: 09/14/2018 2:14 AMNote Text:Pt presented to ED with cc of coughing for weeks. PT stated that she triedher mothers inhaler but no relief. PT states that she feels like somethingis in her chest. Vital Signs Vital Sign Description Value / Unit Date Location The following section is limited to 5 en tries per type and includes entries from the following time range: 20200309 - 20200210 1. Body Temperature 99.1 [degF] 03-09-2020 [facility] ([id number]) Body weight 82.56 kg 03-09-2020 [facility] ([id number]) BP Diastolic 74 mm[Hg] 03-09-2020 [facility] ([id number]) BP Systolic 112 mm[Hg] 03-09-2020 [facility] ([id number]) Height 165.1 cm 09-14-2018 [facility] ([id number]) Pulse (Heart Rate) 92 /min 03-09-2020 [facility] ([id number]) Pulse Oximetry 96 % 03-09-2020 [facility] ([id number]) Respiratory Rate 16 /min 03-09-2020 [facility] ([id number]) Encounters Date Type Reason Provider Location 09-14-2018 - Emergency department [facility] 09-14-2018 patient visit ([id number]) 07-02-2020 Patient encounter [facility] procedure ([id number]) 06-04-2020 Patient encounter [facility] procedure ([id number]) 07-21-2020 - Subsequent hospital [facility] 07-21-2020 visit by physician Plan of Treatment Plan Description Date Location PAP TESTING PAP TESTING 07-21-2025 [facility] ([id number]) INFLUENZA (#1) INFLUENZA (#1) 2020 - [facility] 06-10-2020 ([id number]) DIABETES SCREEN DIABETES SCREEN 2017 - [facility] 2017 ([id number]) LIPID SCREEN LIPID SCREEN 2017 - [facility] 2017 ([id number]) MAMMOGRAM MAMMOGRAM 2012 - [facility] 2012 ([id number]) PAP TESTING PAP TESTING 03-10-2011 [facility] ([id number]) HPV TESTING HPV TESTING 2002 - [facility] 2002 ([id number]) DTAP,TDAP,TD (1 - DTAP,TDAP,TD (1 - Tdap) 1991 - [facility] Tdap) 1991 ([id number]) HEPATITIS C SCREENING no information 1990 - [facility] 1990 ([id number]) HIV SCREENING HIV SCREENING 1990 - [facility] 1990 ([id number]) Payers Payer Name Policy Number Location [facility] [id number] [facility] ([id number]) [employer] [id number] [facility] (44 195) The following information is from the original human readable contentNo Payer Records FoundNo Payer Records FoundNo Payer Records Found Social History Type Social History Date Location Description Tobacco smoking status Current every day smoker 03-09-2020 [facility] NHIS 07-21-2020 ([id number]) History of tobacco use Cigarette Smoker [facility] ([id number]) Cigarettes smoked 03-09-2020 [facility] ic current (pack per day) 07-21-2020 ([id number]) - Reported Tobacco use and Never used 03-09-2020 [facility] exposure 07-21-2020 ([id number]) Alcohol intake Current non-drinker of 03-09-2020 [facility] alcohol (finding) (08608) Sex Assigned At Not on file [facility] ([id number]) Exposure to SARS-CoV-2 Not sure [facility] (event) ([id number]) Alcohol intake Ex-drinker (finding) 07-21-2020 [facility]inic ([id number]) Sex Assigned At Female [facility] (05995) The following information is from the original human readable contentNo Social History Records FoundNo Social History Records FoundNo Social History Records Found Summary Purpose Family History No Family History Records Found Medical History Relation Name Comments Psychiatry Father suicide Breast Cancer Paternal Grandmother Relation Name Status Comments Brother Alive Father Mother Alive Paternal Grandmother Advance Directives No Advanced Directives Records Found Documents on File Type Date Recorded 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 This clinical summary was aggregated from multiple sources. Caution should be exercised in using it in the provision of clinical care. This summary normalizes information from multiple sources, and as a consequence, information in this document may materially changethe coding, format and clinical context of patient data. In addition, data may be omittedin some cases. CLINICAL DECISIONS SHOULD BE BASED ON THE PRIMARY CLINICAL RECORDS. [facility] provides no warranty or guarantee of the accuracy or completeness of information in this document. UNRECOGNIZED CONTENT PROVIDED BELOW FOR UNRECOGNIZED SECTION INFORMATION SOURCE DATE CREATED AUTHOR AUTHOR'S ORGANIZATIO N 09/19/2018 [facility] DATE CREATED AUTHOR AUTHOR'S ORGANIZATIO N 07/26/2020 [facility] UNRECOGNIZED CONTENT PROVIDED BELOW FOR UNRECOGNIZED SECTION Source Comments In the event this information is protected by the Federal Confidentiality of Alcohol and Drug Abuse Patient Records regulations: The Federal rules restrict any use of the information to criminally investigate or prosecute any alcohol or drug abuse patient.[facility]
== END ==
DX: R91.8 Other nonspecific abnormal finding of lung field (principal)
CPT/HCPCS: 71250

== ENCOUNTER 2020-03-28 01:11 | Emergency (ER) | payer MEDICARE, MEDICAID, SELFPAY ==
[2020-03-28 01:12] VITALS: BP 126/88; PULSE 84; RESP 16; TEMP 36.8; O2SAT 98; BMI 32.1
--- NOTE | 2020-03-28 01:39 | ED.VIS.GEN ---
History of Present Illness Chief Complaint: Other, Pain/Inj Informant: Patient Onset: Days Narrative: Patient presents the emergency department with pain in the shoulder for 3 to 4 days. Is worse with movement and with touch. She states the pain is now rating down her arm. No muscle weakness or paresthesias. No shortness of breath or chest pain. No known trauma. Denies any IV drug use, fevers, rashes. Past Medical History - Allergies and Home Meds Allergies/Adverse Reactions: Allergies aripiprazole [From Abilify] Allergy (Verified 03/28/20 01:15) Other Fish Containing Products Adverse Reaction (Verified 03/28/20 01:15) Other MAKE PATIENT SICK fluoxetine HCl [From Prozac] Adverse Reaction (Verified 03/28/20 01:15) Other metoclopramide HCl [From Reglan] Adverse Reaction (Verified 03/28/20 01:15) Other Primary Care Physician: NOT,DEFINED [Primary Care Provider] - Smoking Status: Current every day smoker Review of Systems General: Denies: Chills, Fever, Sweats Eyes: Denies: Visual changes - bilaterally, Diplopia ENT: Denies: Rhinorrhea, Sore throat Cardiovascular: Denies: Chest pain, Palpitations Respiratory: Denies: Dyspnea, Cough, Dyspnea on exertion Gastrointestinal: Denies: Abdominal pain, Nausea, Vomiting, Diarrhea, Melena, Hematochezia Genitourinary: Denies: Dysuria, Hematuria, Frequency Musculoskeletal: Reports: Neck pain, Extremity Pain. Denies: Back pain Skin: Denies: Rash, Wounds Neurological: Denies: Headache, Weakness, Numbness Physical Exam Vital Signs/Narrative: Vital Signs Temp Pulse Resp BP Pulse Ox 03/28/20 01:12 98.2 F 84 16 126/88 H 98 Inital Vital Signs reviewed: Yes General: Well nourished, Well developed, No Acute Distress Head: Normocephalic, Atraumatic Eyes: Perrl, EOMI ENT: Moist mucous membranes, No rhinorrhea Neck: Supple, - - Patient has tenderness palpation along the right trapezius from the neck down to her scapula. This exacerbates the pain she is experiencing. Cardiovascular: Regular rate, Regular rhythm, No murmurs Respiratory: No distress, CTA bilaterally, Chest nontender Abdomen: Soft, Nontender, Nondistended, Normal bowel sounds Back: Nontender, Normal Inspection Extremities: Nontender, No edema, - - The right arm is neurovascularly intact Skin: Normal color, No rash Neurological: Alert, Oriented x3, Cranial nerves II-XII grossly intact, Normal Strength, Normal Sensation Psychological: Normal affect, Normal Mood Diagnostic/Tx/Re-eval - Medical Decision Making Patient will be given a shot of Toradol Norflex. I will write her prescription for Flexeril she is to follow-up with her doctor. ED Disposition - Plan for ED Patient: Disposition: Home or Assisted Living Diagnosis: Trapezius muscle spasm Instructions: ED Spasm Back No Trauma Prescriptions: cycloBENZAPRine HCl [Flexeril] 10 mg PO TID PRN #15 tab PRN Reason: Muscle Spasm Prescription Printed Additional Instructions: Follow-up with your doctor if not improved in 3 to 5 days
[2020-03-28] MEDS: Ketorolac 60 MG/2 ML Vial IM (01:53)
[2020-03-28] MEDS: Orphenadrine 60 MG/2 ML Ampul IM (01:54)
== END 2020-03-28 02:13 | disposition home or self-care (01) ==
LOC: ED 01:49
PROVIDERS: Emergency Provider Emergency Medicine
DX: M62.830 Muscle spasm of back (principal); M54.2 Cervicalgia; Z79.899 Other long term (current) drug therapy; F17.200 Nicotine dependence, unspecified, uncomplicated
CPT/HCPCS: 96372; 99282

== ENCOUNTER 2020-03-29 17:20 | Emergency (ER) | payer MEDICARE, MEDICAID, SELFPAY ==
[2020-03-28 01:12] VITALS: BMI 32.1
[2020-03-29 17:22] VITALS: BP 148/69; PULSE 81; RESP 16; TEMP 36.3; O2SAT 99; BMI 26.6
--- NOTE | 2020-03-29 17:38 | ED.DCSUM_ITS ---
- ER Visit Summary Date of Service: 03/29/20 Chief Complaint: [Back and shoulder pain] History of Present Illness: The patient is a 49 F [presents to the emergency department with pain in her back and shoulder that started about 5 or 7 days ago. Patient states that he has some back issues from time to time and was trying to get her son to crack her back and he could not do it so he had him walk on her upper back. Patient complains of diffuse pain to the upper back and neck especially with extension of the neck in certain movements. Patient complains of some pain radiating down her right arm at times. She denies any paresthesias or weakness in extremities. Patient was seen in the emergency department last evening and was written a prescription for Flexeril. Patient states that she did not tell the physician what happened. Patient also states that recently she had a prescription called in for gabapentin by her primary care physician. Patient has history of high cholesterol.] Physical Examination: [HEENT-PERRLA, EOMI. Cranial nerves II through XII grossly intact. TMs clear. Mucous membranes moist. No adenopathy. Cardiovascular-regular rate and rhythm without murmur or ectopy Lungs-clear to auscultation, chest wall stable without crepitus or subcu emphysema Abdomen-normoactive bowel sounds, soft, nontender, no rebound or rigidity, no peritoneal signs. Back exam-patient has some diffuse tenderness over the lower cervical spine diffusely as well as the upper thoracic spine. There is no ecchymosis or bruising noted. Patient has normal deep tendon reflexes in the upper and lower extremities. 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 Extremities-intact ?4, normal range of motion, normal pulses, atraumatic] Test Results: [X-rays of the thoracic spine were obtained which showed no fractures. X-rays of the C-spine showed some degenerative changes at C6-7 but no fractures or malalignment.] Emergency Department Course and Treatment: [] Treatment Plan: [Patient advised to use ibuprofen for discomfort and continue with the Flexeril and gabapentin. She did not want a thing else for pain. She is to follow-up with her primary care physician as if her symptoms do not improve may require further imaging such as possibly MRI to evaluate further.] Disposition: [Discharged home in stable condition] Impression: [Cervical radiculopathy Upper back pain] This note was generated with Dragon dictation software. It may contain incorrect words, spelling, and punctuation that were not noted in review of the chart prior to signing ED Disposition - Plan for ED Patient: Referrals: Inna Purcell [Primary Care Provider] -
--- NOTE | 2020-03-29 17:53 | RAD_ITS ---
STUDY: X-RAY - THORACIC SPINE REASON FOR EXAM: Female, 49 years old. STATES SHE NEEDED HER BACK CRACKED AND HAD HER SON WALK ON HER BACK WHO WAS MAD AT HER, AND HE WAS TOO ROUGH WITH HER. NOW C/O OF BACK PAIN. SEEN PREVIOUSLY FOR SAME. INJURY OCCURRED 5 DAYS AGO. STATES MASSAGES ARE NOT HELPING. STATES SHE HAS FLEXERIL BUT HASN''T TAKEN IT. TECHNIQUE: 3 view(s) of the thoracic spine were obtained. COMPARISON: None. FINDINGS: Normal kyphosis of the thoracic spine. There is no substantial scoliosis. There is multilevel endplate spondylosis of the thoracic vertebrae. Normal disc space heights. The soft tissue structures are unremarkable. RAD/Thoracic Spine 2 Views IMPRESSION: No evidence of malalignment or compression deformity. Electronically Signed: Richie Allred DO at 18:31 EDT , Service support ,
--- NOTE | 2020-03-29 17:53 | RAD_ITS ---
STUDY: X-RAY - CERVICAL SPINE REASON FOR EXAM: Female, 49 years old. STATES SHE NEEDED HER BACK CRACKED AND HAD HER SON WALK ON HER BACK WHO WAS MAD AT HER, AND HE WAS TOO ROUGH WITH HER. NOW C/O OF BACK PAIN. SEEN PREVIOUSLY FOR SAME. INJURY OCCURRED 5 DAYS AGO. STATES MASSAGES ARE NOT HELPING. STATES SHE HAS FLEXERIL BUT HASN''T TAKEN IT. TECHNIQUE: 6 view(s) of the cervical spine were obtained. COMPARISON: None FINDINGS: Normal anterior atlantoaxial articulation. Normal odontoid process. Normal cervical lordosis. Normal vertebral bodies and endplates. There is degenerative disc changes at C6-7 with decreased disc space and osteophyte formation. Normal visualized intervertebral neuroforamina. The soft tissue structures are unremarkable. RAD/Cerv Spine 2 or 3 Views IMPRESSION: C6-7 degenerative changes with no evidence of acute osseous abnormality. Electronically Signed: Richie Allred DO at 18:31 EDT , Service support ,
--- NOTE | 2020-03-29 18:45 | ED.DEP ---
ED Disposition - Plan for ED Patient: Instructions: ED Neck Back Pain General, ED CERVICAL RADICULOPATHY Referrals: Inna Prucell [Primary Care Provider] - 3-5 Days
== END 2020-03-29 18:51 | disposition home or self-care (01) ==
LOC: ED 17:44
PROVIDERS: Emergency Provider Emergency Medicine
DX: M54.12 Radiculopathy, cervical region (principal); M54.6 Pain in thoracic spine; E78.00 Pure hypercholesterolemia, unspecified; Z72.0 Tobacco use
CPT/HCPCS: 72040; 72070; 99282

== ENCOUNTER 2020-04-01 02:39 | Emergency (ER) | payer MEDICARE, MEDICAID, SELFPAY ==
[2020-04-01 02:40] VITALS: BP 120/68; PULSE 86; RESP 16; TEMP 36.8; O2SAT 99; BMI 33.5
--- NOTE | 2020-04-01 03:02 | RAD_ITS ---
STUDY: X-RAY - LEFT FOOT CLINICAL: Female, 49 years old. NKI -- C/O TINGLING IN LT FOOT TECHNIQUE: 3 view(s) of the foot. COMPARISON: None. FINDINGS: There is a small posterior calcaneal enthesophyte. Otherwise normal talus, calcaneus, and tarsal bones. Normal visualized subtalar, talonavicular, calcaneocuboid, tarsal and tarsometatarsal articulations. Normal metatarsi. Normal metatarsophalangeal joint of the great toe. Normal tibial and fibular sesamoid bones. Normal interphalangeal joint of the great toe. Normal phalanges of the great toe. Normal second through fifth metatarsophalangeal joints. Normal interphalangeal joints and phalanges of the lesser toes. There is nonspecific soft tissue swelling. RAD/Foot min 3 Views IMPRESSION: No demonstrated fracture, dislocation, or destructive osseous lesion. Electronically Signed: Jone Tomlinson MD at 4:03 EDT , Service support ,
--- NOTE | 2020-04-01 03:16 | ED.DCSUM_ITS ---
- ER Visit Summary Date of Service: 04/01/20 Chief Complaint: Left foot pain History of Present Illness: The patient is a 49 F presenting with left foot pain. States she felt a pull behind her left knee while she was in the shower today. She then began experiencing pain and swelling in her left foot. She denies injury. Denies other complaints. Physical Examination: Vitals are stable. Patient is afebrile. Alert no acute distress. HEENT exam is unremarkable. Neck is supple. Lungs are clear and equal bilaterally. Heart is regular rate and rhythm. Abdomen is soft nontender nondistended. Extremities normal DP/PT pulses. Mild swelling to the dorsum of the foot. No calf tenderness. No erythema or warmth. Skin is warm and dry. No focal neurologic deficit. Remainder of exam is unremarkable. Emergency Department Course and Treatment: Left foot x-ray shows no demonstrated fracture, dislocation, or destructive osseous lesion. Patient is able to ambulate without difficulty. Venous Doppler is not available at this time and she was given order form to have a venous Doppler done tomorrow. Advised return to ED for worsening complaints. Disposition: Discharge home Impression: Left foot pain This note was generated with [employer] dictation software. It may contain incorrect words, spelling, and punctuation that were not noted in review of the chart prior to signing ED Disposition - Plan for ED Patient: Referrals: Inna Purcell [Primary Care Provider] -
[2020-04-01 04:22] VITALS: PULSE 72; RESP 16; O2SAT 99
--- NOTE | 2020-04-01 04:23 | ED.DEP ---
ED Disposition - Plan for ED Patient: Instructions: ED Sprain Foot Referrals: Inna Purcell [Primary Care Provider] -
== END 2020-04-01 04:28 | disposition home or self-care (01) ==
LOC: ED 03:26
PROVIDERS: Emergency Provider Emergency Medicine
DX: M79.672 Pain in left foot (principal)
CPT/HCPCS: 73630; 93971; 99282

== ENCOUNTER → 2020-04-01 14:12 | Outpatient (CLI) | payer MEDICARE, MEDICAID, SELFPAY ==
[2020-04-01 02:40] VITALS: BMI 33.5
--- NOTE | 2020-04-01 14:19 | VDLE_ITS ---
Reason For Study: pain Procedure LEFT Exam performed in department. GSV is normal. The exam was abbreviated due to the COVID 19 CFV is compressible, spontaneous, phasic, protocol. competent, and demonstrates normal The exam was diagnostic. augmentation. FV is compressible, spontaneous, phasic, competent and demonstrates normal augmentation. POP V is compressible, spontaneous, phasic, competent and demonstrates normal augmentation. T/P Trunk is compressible. PTV is compressible. LT PerV is compressible. Interpretation Summary Deep veins of the left lower extremity are patent and compressible segmentally. There is no evidence of left lower extremity deep vein thrombosis. Valvular competence appears intact within the proximal deep venous system on the left . The left great saphenous vein appears patent and compressible segmentally. Ordering Physician: Lilia Ricardo Performed By: Chandu Martínez RVT
== END ==
PROVIDERS: Visit Provider Emergency Medicine
DX: M79.672 Pain in left foot (principal)
CPT/HCPCS: 93971

== ENCOUNTER 2020-04-08 22:28 | Emergency (ER) | payer MEDICARE, MEDICAID, SELFPAY ==
[2020-04-08 22:29] VITALS: BP 126/84; PULSE 89; RESP 18; TEMP 36.6; O2SAT 99; BMI 30.4
--- NOTE | 2020-04-08 22:47 | ED.VIS.BACK ---
History of Present Illness Chief Complaint: Back Informant: Patient Onset: Weeks Timing: Continuous Quality: Aching Location: Thoracic Narrative: Patient is a 49-year-old female presenting from home for persistent back and shoulder pain. Patient said she said pain over her right shoulder and upper back the past few weeks. Patient states she is concerned that there were torn muscles in her back. She also notes the pain is worse when she extends her neck and she starts to get pain in her bilateral neck. She has been taking tramadol at night and it is not relieving her pain. Patient was seen in the ER for similar complaint at beginning of this month at that time she was on Flexeril. Patient states she stopped taking the Flexeril because she did not want to mix the 2. She is not taking any anti-inflammatories. She is doing [id number] Lidoderm patches. Patient states she is not follow-up with her primary care doctor yet. States the pain is worse when she is resting and that she tries to get up and start moving again. She denies associated numbness or tingling. She denies any chest pain, shortness of breath or vision changes. She denies any urinary symptoms. No other complaints at this time. No new traumas. Past Medical History - Allergies and Home Meds Allergies/Adverse Reactions: Allergies aripiprazole [From Abilify] Allergy (Verified 04/08/20 22:38) Other Fish Containing Products Adverse Reaction (Verified 04/08/20 22:38) Other MAKE PATIENT SICK fluoxetine HCl [From Prozac] Adverse Reaction (Verified 04/08/20 22:38) Other metoclopramide HCl [From Reglan] Adverse Reaction (Verified 04/08/20 22:38) Other Primary Care Physician: NOT,DEFINED [Primary Care Provider] - Past Medical History: - - Patient denies any medical history however chart review shows that she was previously on Seroquel Surgical History: noncontributory Smoking Status: Current every day smoker Review of Systems General: Denies: Chills, Fever, Sweats Eyes: Denies: Visual changes - bilaterally, Diplopia ENT: Denies: Rhinorrhea, Sore throat Cardiovascular: Denies: Chest pain, Palpitations Respiratory: Denies: Dyspnea, Cough, Dyspnea on exertion Gastrointestinal: Denies: Abdominal pain, Nausea, Vomiting, Diarrhea, Melena, Hematochezia Genitourinary: Denies: Dysuria, Hematuria, Frequency Musculoskeletal: Reports: Myalgias, Neck pain, Back pain - Right thoracic. Denies: Extremity Pain Skin: Denies: Rash, Wounds Neurological: Denies: Headache, Weakness, Numbness Physical Exam Vital Signs/Narrative: Vital Signs Temp Pulse Resp BP Pulse Ox 04/08/20 22:29 97.8 F 89 18 126/84 H 99 Inital Vital Signs reviewed: Yes General: Well nourished, Well developed Head: Normocephalic, Atraumatic Eyes: Perrl, EOMI ENT: Moist mucous membranes, No rhinorrhea Neck: Supple, Nontender, No lymphadenopathy, No JVD, - - Full range of motion Cardiovascular: Regular rate, Regular rhythm, No murmurs Respiratory: No distress, CTA bilaterally, Chest nontender Abdomen: Soft, Nontender Back: Paraspinal Tenderness - Right paraspinal thoracic region and just medial to the shoulder blade, - - Step-off sign, patient ambulates easily. Negative for: Spinal tenderness, CVA tenderness Extremeties: Nontender, No edema Skin: Normal color, No rash Neuro: Alert, Oriented, Normal Strength, Normal Sensation, Normal DTR, Normal Gait Psychological: Normal affect Diagnostic/Tx/Re-eval - Medical Decision Making X-rays from prior visit 10 days ago of the thoracic and cervical spine are reviewed which showed no acute fracture deformity. She did have some degenerative changes at C6-7. Patient's exam is highly consistent with muscle spasm and strain. I do not think repeat imaging is indicated this time. She has normal neurologic exam. She is counseled on NSAID therapy and will be put back on her Flexeril. Patient son is here to drive her home. She is encouraged to follow-up with her primary care doctor as is been going on for a couple weeks. Patient is counseled on signs and symptoms requiring return to the emergency room. Patient verbalizes agreement and understand this plan. Patient discharged home in stable and improved condition. ED Disposition - Plan for ED Patient: Disposition: Home or Assisted Living Diagnosis: Strain of thoracic back region Instructions: ED Sprain Thoracic Spine, ED Spasm Back No Trauma Prescriptions: cycloBENZAPRine HCl [Flexeril] 10 mg PO TID PRN #20 tab PRN Reason: Muscle Spasm Prescription Printed Ibuprofen [Motrin] 600 mg PO Q6H PRN PRN #20 tab PRN Reason: Pain Score 1-10/10 Prescription Printed Additional Instructions: Please follow-up with your primary care doctor. It is okay to take the muscle relaxer, Flexeril (cyclobenzaprine), with ibuprofen.
[2020-04-08] MEDS: cycloBENZAPRine HCl 10 MG Tablet PO (22:51)
[2020-04-08] MEDS: Ibuprofen 600 MG Tablet PO (22:51)
== END 2020-04-08 23:00 | disposition home or self-care (01) ==
LOC: ED 23:00
PROVIDERS: Emergency Provider Emergency Medicine
DX: S29.012A Strain of muscle and tendon of back wall of thorax, initial encounter (principal); M54.2 Cervicalgia; X58.XXXA Exposure to other specified factors, initial encounter; Y93.9 Activity, unspecified; Y92.9 Unspecified place or not applicable; Y99.9 Unspecified external cause status; Z79.899 Other long term (current) drug therapy; F17.200 Nicotine dependence, unspecified, uncomplicated
CPT/HCPCS: 99283

== ENCOUNTER 2020-05-08 04:22 | Emergency (ER) | payer MEDICARE, MEDICAID, SELFPAY ==
[2020-05-08 04:23] VITALS: BP 132/84; PULSE 85; RESP 18; TEMP 36.7; O2SAT 100; BMI 33.0
--- NOTE | 2020-05-08 04:36 | ED.VIS.GEN ---
History of Present Illness Chief Complaint: General Illness Informant: Patient Onset: Hours - 1 Context: Sudden Onset Timing: Intermittent, Lasts - seconds Quality: twitching Location: left eyebrow and upper lip Current Severity: gone Maximum Severity: Mild Worsened by: unk Relieved by: unk Associated Symptoms: none Narrative: Patient presents concerned that she was having muscle twitching in her face as above. She presented 4:30 AM for this. When asked, she admits that she has been up all night, because her sleep habits have changed, then she goes into a story about bedbugs and how she has been trying to eradicate them from her home. Essentially she had 4 cups of coffee tonight, and she has been increasing her caffeine intake lately. She has been eating and drinking normally without any recent illnesses, vomiting. No neurologic symptoms including headache, vision changes, arm or leg numbness/weakness, speech difficulty, trouble walking, or disequilibrium. She takes Seroquel for God knows, is compliant with the medication, and otherwise only takes vitamins and fiber supplementation. Past Medical History - Allergies and Home Meds Allergies/Adverse Reactions: Allergies aripiprazole [From Abilify] Allergy (Verified 04/08/20 22:38) Other Fish Containing Products Adverse Reaction (Verified 04/08/20 22:38) Other MAKE PATIENT SICK fluoxetine HCl [From Prozac] Adverse Reaction (Verified 04/08/20 22:38) Other metoclopramide HCl [From Reglan] Adverse Reaction (Verified 04/08/20 22:38) Other Primary Care Physician: Inna Purcell [Primary Care Provider] - Past Medical History: - - Unknown mental health disorder Lives: With Family Smoking Status: Current every day smoker Review of Systems General: Denies: Chills, Fever, Sweats Eyes: Denies: Visual changes - bilaterally, Diplopia ENT: Denies: Bilateral ear pain, Rhinorrhea, Sore throat Cardiovascular: Denies: Chest pain, Palpitations Respiratory: Denies: Dyspnea, Cough, Dyspnea on exertion Gastrointestinal: Denies: Abdominal pain, Nausea, Vomiting, Diarrhea, Melena, Hematochezia Genitourinary: Denies: Dysuria, Hematuria, Frequency Musculoskeletal: Denies: Back pain, Extremity Pain Skin: Denies: Rash, Wounds Neurological: Denies: Headache, Weakness, Numbness Physical Exam Vital Signs/Narrative: Vital Signs Temp Pulse Resp BP Pulse Ox 05/08/20 04:23 98.1 F 85 18 132/84 H 100 Inital Vital Signs reviewed: Yes General: Well nourished, Well developed, Obese, No Acute Distress Head: Normocephalic, Atraumatic Eyes: Perrl, EOMI ENT: Moist mucous membranes, No rhinorrhea, - - Posterior oropharynx clear Neck: Supple, Nontender, No lymphadenopathy Cardiovascular: Regular rate, Regular rhythm, No murmurs. Negative for: Tachycardia Respiratory: No distress, CTA bilaterally, Chest nontender Abdomen: Soft, Nontender, Nondistended, Normal bowel sounds Back: Nontender, Normal Inspection Extremities: Nontender, No edema Skin: Normal color, No rash Neurological: Alert, Oriented x3, Cranial nerves II-XII grossly intact, Normal Strength, Normal Sensation, Normal Gait, - - Patient able to squeeze eye lids shot hard, and raise eyebrows up symmetrically, no asymmetry, no twitching or muscle spasms during exam. Psychological: Normal affect, Normal Mood, - - Tangential, flight of ideas. No delusions, hallucinations, suicidal ideation. Able to be redirected. Diagnostic/Tx/Re-eval - Medical Decision Making Patient is reassured. I do not think she needs any emergent testing at this time. I think this is related to her caffeine intake tonight. Advised to try to curb that, and we discussed reasons to return. ED Disposition - Plan for ED Patient: Disposition: Home or Assisted Living Diagnosis: Eye muscle twitches Instructions: ED SPASM Muscle Referrals: Inna Purcell [Primary Care Provider] - As Needed Additional Instructions: Decreasing your caffeine intake will help prevent muscle twitching.
== END 2020-05-08 04:47 | disposition home or self-care (01) ==
LOC: ED 04:43
PROVIDERS: Emergency Provider Emergency Medicine
DX: R25.3 Fasciculation (principal); E66.9 Obesity, unspecified; F17.200 Nicotine dependence, unspecified, uncomplicated; Z79.899 Other long term (current) drug therapy
CPT/HCPCS: 99282

== ENCOUNTER 2021-04-04 19:55 | Emergency (ER) | payer MEDICARE, MEDICAID, SELFPAY ==
[2021-04-04 19:55] VITALS: BP 119/69; PULSE 88; RESP 16; TEMP 35.7; O2SAT 97; BMI 32.9
--- NOTE | 2021-04-04 20:25 | ED.VIS.LOWEX ---
HPI History of Present Illness Chief Complaint: Lower Extremity Injury Narrative Narrative: 50-year-old female presents with pain in the left upper calf. She states she heard a pop for this happen. She was helping her son do something and turned and stepped off and is happened. She is ambulatory. She denies paresthesias. She denies ankle or lower calf pain. She denies knee pain. PFSH PFSH Home Medications ibuprofen 600 mg PO Q6H PRN PRN #20 tab 04/08/20 [Rx Last Taken Unknown] cholecalciferol (vitamin D3) 2,000 unit PO DAILY 05/08/20 [History Last Taken Unknown] risperidone 2 mg PO DAILY 05/08/20 [History Last Taken Unknown] Allergy/AdvReac Type Severity Reaction Status Date / Time aripiprazole [From Abilify] Allergy Other Verified 04/04/21 19:57 Fish Containing Products AdvReac Other Verified 04/04/21 19:57 fluoxetine HCl [From Prozac] AdvReac Other Verified 04/04/21 19:57 metoclopramide HCl AdvReac Other Verified 04/04/21 19:57 [From Reglan] Social History Smoking Status: Current every day smoker ROS ROS ED Constitutional Constitutional ED: Denies chills, fever(s) or subjective Eyes Eyes: Denies blurry vision or change in vision ENT ENT ED: Denies ear pain, rhinorrhea or sore throat Cardiovascular Cardiovascular: Denies chest pain, palpitations or racing heartbeat Respiratory/Chest Respiratory/Chest: Denies cough, dyspnea or sputum Gastrointestinal Gastrointestinal: Denies abdominal pain, nausea or vomiting Genitourinary Genitourinary ED: Denies dysuria or hematuria Musculoskeletal Musculoskeletal: Reports other Details: Left calf pain Integumentary Denies abscess or rash Neurologic Neurologic: Denies headache(s), paresthesias or weakness Psychiatric Psychiatric: Denies anxiety or depression EXAM Physical Exam Const Vital Signs: 04/04/21 19:55 Temperature 96.3 F L Temperature Source Temporal Pulse Rate 88 Respiratory Rate 16 Blood Pressure 119/69 Blood Pressure Mean 85 Pulse Ox 97 Oxygen Delivery Method Room Air Positive well nourished General Appearance ED: NAD HEENT normocephalic and atraumatic Eyes PERRL General Eye ED: Yes other Resp normal respiratory effort and clear to auscultation bilaterally Cardio regular rate and regular rhythm Extremity Extremity Narrative: Tenderness to palpation left upper calf midline. There is no swelling or ecchymosis. When ambulating patient has pain with stepping off. She has a stable gait. MDM MDM MDM Narrative Medical decision making narrative: Patient presenting with calf pain. She states he did hear a pop before this started. I do believe she has a partial calf tear and likely gastrocnemius. Patient will be placed in an Terrence wrap counseled on ice, elevation, compression. She will follow-up with her PCP to ensure resolution. Impression: 1. Partial gastrocnemius tear Discharge Plan Triage Chief Complaint: Lower Extremity Injury ED Provider: Herrera Cowan Dx/Rx/DC Orders Instructions: Gastrocnemius Muscle Tear Prescriptions: No Action ibuprofen 600 MG tablet 600 mg PO Q6H PRN PRN (Reason: Pain Score 1-10/10) Qty: 20 RF: 0 risperidone 2 MG tablet 2 mg PO DAILY RF: 0 cholecalciferol (vitamin D3) 2,000 UNIT capsule 2,000 unit PO DAILY RF: 0 Primary Care Provider: Inna Purcell Referrals: Inna Purcell [Primary Care Provider] - Disposition Disposition: Home, Self Care
[2021-04-04] MEDS: Naproxen 500 MG Tablet PO (20:29)
[2021-04-04 20:55] VITALS: RESP 18
== END 2021-04-04 20:57 | disposition home or self-care (01) ==
LOC: ED 20:31
PROVIDERS: Emergency Provider Student in an Organized Health Care Education/Training Program
DX: S86.112A Strain of other muscle(s) and tendon(s) of posterior muscle group at lower leg level, left leg, initial encounter (principal); X58.XXXA Exposure to other specified factors, initial encounter; Y93.9 Activity, unspecified; Y92.9 Unspecified place or not applicable; Y99.9 Unspecified external cause status; Z79.899 Other long term (current) drug therapy; F17.200 Nicotine dependence, unspecified, uncomplicated
CPT/HCPCS: 99283

== ENCOUNTER 2021-05-31 03:45 | Emergency (ER) | payer MEDICARE, MEDICAID, SELFPAY ==
[2021-05-31 03:47] VITALS: BP 110/93; PULSE 79; RESP 16; TEMP 36.8; O2SAT 96; BMI 31.6
--- NOTE | 2021-05-31 04:05 | EDS_ITS ---
HPI HPI - Psych History of Present Illness Chief Complaint: Bite Informant: patient Narrative Narrative: Patient presents wondering if she could have some type of infection from the bite of a bearded dragon which apparently is a small lizard, that she may or may not have been bitten by either in December or February of this year. Initially she states she is asymptomatic, but when asked why she came to the ER at 4 AM for this tonight, she states that she was feeling poorly but cannot describe it in any other detail and she denies all other review of systems symptoms. History is extremely limited because the patient is extremely tangential with flight of ideas and needs to be interrupted continuously to keep her on track. She has had no diarrhea or bright red blood per rectum, fevers, chills. No cough or shortness of breath. She was vaccinated for Covid several months ago. PFSH PFSH unable to obtain (Patient states she does not know what they diagnosed her with) Home Medications cholecalciferol (vitamin D3) 2,000 unit PO DAILY 05/08/20 [History Last Taken Unknown] risperidone 2 mg PO DAILY 05/08/20 [History Last Taken Unknown] Lactobacillus acidoph-L.bulgar [Floranex] 1 tab PO DAILY 04/04/21 [History Last Taken Unknown] ascorbic acid (vitamin C) [Vitamin C] 1 g PO DAILY 04/04/21 [History Last Taken Unknown] vitamin B complex [Super B Complex] 1 cap PO DAILY 04/04/21 [History Last Taken Unknown] Allergy/AdvReac Type Severity Reaction Status Date / Time aripiprazole [From Abilify] Allergy Other Verified 05/31/21 03:51 Fish Containing Products AdvReac Other Verified 05/31/21 03:51 fluoxetine HCl [From Prozac] AdvReac Other Verified 05/31/21 03:51 metoclopramide HCl AdvReac Other Verified 05/31/21 03:51 [From Reglan] Social History Smoking Status: Current every day smoker tobacco type: cigarettes ROS ROS ED Constitutional Constitutional ED: Denies chills or fever(s) Eyes Eyes: Denies change in vision or diplopia ENT ENT ED: Denies rhinorrhea or sore throat Cardiovascular Cardiovascular: Denies chest pain or palpitations Respiratory/Chest Respiratory/Chest: Denies cough or dyspnea Gastrointestinal Gastrointestinal: Denies abdominal pain, diarrhea, nausea or vomiting Genitourinary Genitourinary ED: Denies dysuria or hematuria Musculoskeletal Musculoskeletal: Denies back pain or neck pain Integumentary Denies abscess or rash Neurologic Neurologic: Denies headache(s), paresthesias or weakness Psychiatric Psychiatric: Reports as per HPI; Denies anxiety or suicidal thoughts EXAM Physical Exam Const Vital Signs: 05/31/21 03:47 05/31/21 03:54 Temperature 98.2 F Temperature Source Temporal Pulse Rate 79 Respiratory Rate 16 Respiratory Effort Normal Blood Pressure 110/93 H Blood Pressure Mean 98 Pulse Ox 96 Oxygen Delivery Method Room Air Positive well nourished, well developed and unkempt General Appearance ED: unkempt, well developed and NAD HEENT Reports moist mucous membranes normocephalic and atraumatic Eyes PERRL and EOMs intact bilaterally Neck full ROM and supple Resp normal respiratory effort and clear to auscultation bilaterally Cardio regular rate, regular rhythm and no murmurs Rate: Negative for tachycardic GI non-tender and non-distended Auscultation: normoactive bowel sounds Palpation: soft Back/Spine no CVA tenderness General Back: other FROM Extremity normal to inspection General Extremety ED: Negative for edema, pulses abnormal or tenderness General Extremity: Negative for edema or pulses abnormal Neuro oriented x3, CN's II-XII intact bilaterally, no sensory deficits noted and gait normal Sensorium / Orientation: awake and alert Motor Exam: strength 5/5 throughout Psych cooperative and speech normal Appearance: unkempt Thought Process: disorganized, flight of ideas, loose associations and tangential Thought Content: No suicidality, No homicidality, No hallucination(s) and obsession(s) Attention / Concentration: concentration grossly impaired Memory / Cognition: memory grossly intact Insight: poor Judgement: other Difficult to assess Skin no rashes or lesions noted and no wounds MDM MDM MDM Narrative Medical decision making narrative: Patient was adamant that we needed to run alesia e tests to check for infections that she may have. The more I tried to have a logical discussion with her, the more I realized how disorganized her thinking was. Therefore I offered to have blood and urine tests run on her, initially she was amenable but then she changed her mind and eloped saying that she was just going to leave. Discharge Plan Triage Chief Complaint: Bite ED Provider: Reid Mcnair Dx/Rx/DC Orders Clinical Impression: Psychosis Prescriptions: No Action risperidone 2 MG tablet 2 mg PO DAILY RF: 0 cholecalciferol (vitamin D3) 2,000 UNIT capsule 2,000 unit PO DAILY RF: 0 ascorbic acid (vitamin C) [Vitamin C] 500 mg Tablet 1 g PO DAILY RF: 0 vitamin B complex [Super B Complex] Capsule 1 cap PO DAILY RF: 0 Lactobacillus acidoph-L.bulgar [Floranex] 1 million cell tablet 1 tab PO DAILY RF: 0 Primary Care Provider: Inna Purcell Referrals: Inna Purcell [Primary Care Provider] - Disposition Disposition: Elopement
--- NOTE | 2021-05-31 04:31 | NURSING ---
patient left right after the Dr went into room for eval. Dr aware as he was in [place] and told her it was fine to go. Patient was evaluated.
== END 2021-05-31 04:44 | disposition left against medical advice (07) ==
PROVIDERS: Emergency Provider Emergency Medicine
DX: F29 Unspecified psychosis not due to a substance or known physiological condition (principal); F17.210 Nicotine dependence, cigarettes, uncomplicated; Z79.899 Other long term (current) drug therapy
CPT/HCPCS: 99282